=== PATIENT | male | born 1970 ===

== ENCOUNTER 2016-09-18 06:38 | Inpatient (IN) | payer OTHER ==
[2016-09-18 07:10] LABS: Eosinophils % (Auto) 0.1 % (0.0-4.3)
[2016-09-18 07:20] LABS: Anion Gap 24 mmol/L; Blood Urea Nitrogen 9 mg/dL (9-20); Calcium 8.9 mg/dL (8.4-10.2); Carbon Dioxide 18 mmol/L (22-30); Chloride 89.1 mmol/L (98-107); Potassium 4.1 mmol/L (3.6-5.0); Sodium 127 mmol/L (137-145)
[2016-09-18 07:49] LABS: Mean Corpuscular HGB Conc 29 % (32-34); Red Blood Count 5.68 M/mm3 (3.65-5.03); White Blood Count 4.7 K/mm3 (4.5-11.0)
[2016-09-18 07:50] LABS: Hematocrit 32.5 % (35.5-45.6); Hemoglobin 9.5 gm/dl (11.8-15.2); Mean Corpuscular Hemoglobin 17 pg (28-32); Mean Corpuscular Volume 57 fl (84-94); Platelet Count 157 K/mm3 (140-440); Red Cell Distribution Width 20.9 % (13.2-15.2)
[2016-09-18 07:51] LABS: Glucose 568 mg/dL (75-100)
[2016-09-18 07:54] LABS: Basophils % (Auto) 0.6 % (0.0-1.8); Diff Status Complete
[2016-09-18] MEDS ORDERED: ATIVAN IV ONE (10:04)
[2016-09-18] MEDS ORDERED: NACL 0.9% 1000 ML 1,000 ML IV ONE ×2 (10:04→11:39)
[2016-09-18] MEDS ORDERED: ATIVAN ONE (10:05)
[2016-09-18] MEDS ORDERED: NACL 0.9% 1000 ML 1,000 ML ONE (10:05)
--- NOTE | 2016-09-18 10:17 | Admit Criteria Form ---
Admission Criteria Documentation: GENERAL ADMISSION CRITERIA (Place 'X' for any and all applicable criteria): Admission is indicated for ANY ONE of the following: [ ]I. Hemodynamic instability as indicated by ANY ONE of the following(1)(2) (3)(4)(5): [ ]a) Vital sign abnormality not readily corrected by appropriate treatment within 12 to 24 hours indicated by ANY ONE of the following: [ ]i) Hypotension [ ]ii) Symptomatic Tachycardia unresponsive to treatment (eg , analgesia, fluids, sedation as indicated) [ ]iii) Orthostatic vital sign changes unresponsive to treatment (eg, fluids) [ ]b) Vital sign abnormality that is severe indicated by ANY ONE of the following: [ ]i) Inadequate perfusion indicated by ANY ONE of the following: [ ]1) Lactic acidosis (greater than 2 mmol/L) [ ]2) New abnormal capillary refill (greater than 3 seconds) [ ]3) Other metabolic acidosis (arterial pH less than 7.35) not otherwise explained [ ]4) Reduced urine output [ ]5) Altered mental status [ ]6) Myocardial Ischemia [ ]v) Mean arterial pressure[A] less than 60 mm Hg [ ]vi) Mean arterial pressure[A] less than 70 mm Hg after 30 minutes of appropriate treatment (eg, fluid resuscitation) [ ]vii) IV inotropic or vasopressor medication required to maintain adequate blood pressure or perfusion [ ]viii) Sustained heart rate greater than 120 beats per minute in adult or child 6 years or older[B]] [ ]II. Hypertension requiring inpatient treatment as indicated by ANY ONE of the following(6)(7)(8): [ ]a) SBP greater than 220 mm Hg or DBP greater than 120 mm Hg despite treatment [ ]b) SBP greater than 140 mm Hg or DBP greater than 100 mm Hg with evidence of acute end organ damage as indicated by ANY ONE of the following: [ ]i) Encephalopathy [ ]ii) Acute renal failure as indicated by new onset of ANY ONE of the following(9)(10)(11)(12)(13): [ ]1) A 3-fold rise in serum creatinine from baseline [ ]2) Serum creatinine greater than 4 mg/dL ( 354 micromoles/L) with acute rise greater than 0.5 mg/dL (44.2 micromoles/L) [ ]3) Reduction of more than 75% in estimated glomerular filtration rate from baseline [ ]4) Estimated glomerular filtration rate less than 35 mL/min/1.73m2 (0.59 mL/sec/1.73m2) in child up to 18 years of age [ ]5) Cessation of urine output indicated by ALL of the following: [ ]A. Adequate volume status [ ]B. Inadequate urine output as indicated by ANY ONE of the following: [ ]a. Urine output less than 0.3 mL/kg/hr for 24 hours [ ]b. Anuria (urine output less than 0.1 mL/kg/hr) for 12 hours [ ]iii) Aortic dissection [ ]iv) Myocardial ischemia [ ]v) Left ventricular heart failure [ ]vi) Retinal hemorrhage [ ]vii) Other significant finding [ ]c) Hypertension in child requiring inpatient treatment as indicated by ALL of the following(14)(15)(16): [ ]i) Outpatient treatment not effective, not available, or not appropriate [ ]ii) SBP or DBP greater than 95th percentile for age [ ]iii) Evidence of acute end organ damage as indicated by ANY ONE of the following: [ ]1) Altered mental status [ ]2) Acute renal failure as indicated by new onset of ANY ONE of the following(9)(10)(11)(12)(13): [ ]A. A 3-fold rise in serum creatinine from baseline [ ]B. Serum creatinine greater than 4 mg/dL (354 micromoles/L) with acute rise greater than 0.5 mg/dL (44.2 micromoles/L) [ ]C. Reduction of more than 75% in estimated glomerular filtration rate from baseline [ ]D. Estimated glomerular filtration rate less than 35 mL/min/1.73m2 (0.59 mL/sec/1.73m2)in child up to 18 years of age [ ]E. Cessation of urine output indicated by ALL of the following: [ ]a. Adequate volume status [ ]b. Inadequate urine output as indicated by ANY ONE of the following: [ ]1) Urine output less than 0.3 mL/kg/hr for 24 hours [ ]2) Anuria (urine output less than 0.1 mL/kg/hr) for 12 hours [ ]3) Severe headache [ ]4) Visual disturbance [ ]5) Retinal hemorrhage [ ]6) Other significant finding [ ]III. Acute cardiac or peripheral ischemia as indicated by ANY ONE of the following: [ ]a) Acute coronary syndrome(17)(18) [ ]b) Acute peripheral ischemia (eg, pulseless, cool, mottled, or cyanotic extremity)(19) [ ]IV. Cardiac arrhythmias or findings of immediate concern indicated by ANY ONE of the following(20)(21): [ ]a) Heart rhythms that are inherently dangerous or unstable indicated by ANY ONE of the following(22)(23)(24): [ ]i) Resuscitated ventricular fibrillation or cardiac arrest [ ]ii) Ventricular escape rhythm [ ]iii) Sustained ventricular tachycardia (30 seconds or more of ventricular rhythm at greater than 100 beats per minute) [ ]iv) Nonsustained ventricular tachycardia and ANY ONE of the following: [ ]1) Suspected cardiac ischemia as cause or consequence of ventricular tachycardia [ ]2) In setting of acute myocarditis [ ]b) Unstable cardiac conduction defects indicated by ANY ONE of the following(24)(25)(26): [ ]i) Type II second-degree atrioventricular block [ ]ii) Third-degree atrioventricular block [ ]iii) New-onset left bundle branch block with suspected myocardial ischemia [ ]c) Any heart rhythm and ANY ONE of the following(22)(23)(27)(28)( 29): [ ] i) Continuous long-term ECG monitoring needed (eg, initiation of drug requiring monitoring for more than 24 hours) [ ] ii) Patient has automatic implanted cardioverter defibrillator that is repeatedly firing, malfunctioning, or in need of immediate adjustment of settings beyond the scope of ambulatory or observation care. [ ]d) Heart rhythms of concern due to ANY ONE of the following: [ ]i) Hypotension [ ]ii) Respiratory distress [ ]iii) Association with other significant symptoms (eg, bradycardia with syncope or ongoing dizziness, supraventricular tachycardia with chest pain) (27)(28) (30) [ ] V. Severe heart failure as indicated by ANY ONE of the following ( 31)(32): [ ]a) Respiratory distress [ ]b) Hypotension [ ]c) Anasarca (refractory to outpatient therapy) [ ]d) Cardiac arrhythmias of immediate concern [ ]e) Myocardial ischemia [ ]. Respiratory abnormalities, including ANY ONE of the following(33)(34) (35)(36): [ ]a) Respiratory rate greater than 30 breaths per minute unresponsive to treatment [A] [ ]b) New saturation of arterial oxygen less than 90% [ ]c) New partial pressure of carbon dioxide greater than 44 mm Hg ( 5.9 kPa) [ ]d) Supplemental oxygen or respiratory treatments needed that are new or not performable at other levels of care [ ]e) New-onset cyanosis [ ]f) Inability to protect airway [ ]g) Chronic lung disease with severe deterioration (not responsive to emergency and observation care treatment as appropriate) as indicated by ANY ONE of the following(34)(36 ): [ ]i) SaO2 5% below baseline in patient with chronic hypoxemia [ ]ii) New requirement for supplemental oxygen to keep SaO2 at baseline or acceptable level [ ]iii) Required supplemental oxygen performable only in acute inpatient setting [ ]iv) Severe airflow or ventilation abnormalities [ ]v) Previously mobile patient unable to walk between rooms [ ]vi Inability to eat or sleep due to dyspnea [ ]vii) Rapid rate of exacerbation onset [ ]viii) Altered mental status ]VII. Severe airflow or ventilation abnormalities (not responsive to emergency and observation care treatment as appropriate) as indicated by ANY ONE of the following(33)(34)(35)(37): [ ]a) PCO2 greater than 42 mm Hg (5.6 kPa) and pH less than 7.35 (new ) [ ]b) Documented PCO2 increased more than 5 mm Hg (0.7 kPa) from disease baseline [ ]c) Airflow measurements [B] less than 60% of previous best or predicted (eg, peak expiratory flow rate less than 300 L/minute) despite intensive emergent treatment [C] [ ]d) Required respiratory treatments that are performable only in acute inpatient setting [ ]VIII. Impending or actual respiratory arrest ( Also use Respiratory Failure GRG for severe respiratory disease and long-term mechanical ventilation patients) [ ]IX. Neurologic abnormalities, including ANY ONE of the following: [ ]a) New findings that suggest ANY ONE of the following: [ ]i) NURSING SU[employer] WORKER infection(38) [ ]ii) Cerebral bleeding, ischemia, or vasospasm(39)(40) [ ]iii) Increased intracranial pressure, hydrocephalus, or cerebral edema(41)(42)(43) [ ]iv) Spinal cord injury(44) [ ]b) Uncontrolled seizures(45) [ ]c) New-onset coma (eg, Franklin coma scale score less than 9) or unexplained abnormal mental status (eg, Franklin coma scale score less than 14) [D](41)(46)(47) [ ]X. New-onset severe neurologic findings requiring inpatient care; examples include(42)(48)(49): [ ]a) Papilledema [ ]b) Cerebral edema [ ]c) Mass effect on CT scan [ ]XI. Suspected acute intra-abdominal process with peritoneal signs, abdominal mass, or similar findings (50)(51)(52) [X ]XII. Severe physiologic disorder remaining after emergency or observation level care (as appropriate) as indicated by ANY ONE of the following (53): [ ]a) Significant dehydration [ X]b) Diabetic ketoacidosis [ ]c) Hyperglycemic hyperosmolar state (eg, osmolality greater than 320 mOsm/kg (mmol/kg) [ ]d) Hypoglycemia [ ]e) Other (new) acid-base disorder with pH less than 7.35 or greater than 7.5(54) [ ]f) Thyroid storm (55) [ ]g) Myxedema coma (55) [ ]XIII. Abdominal abnormalities with ANY ONE of the following(56)(57): [ ]a) Absent bowel sounds with complete ileus [ ]b) Signs of intestinal obstruction or peritonitis [E] [ ]c) Nausea and vomiting that cannot be controlled with outpatient or observation care [ ]XIV. Acute renal failure as indicated by new onset of ANY ONE of the following(9)(10)(11)(12)(13): [ ]a) A 3-fold rise in serum creatinine from baseline [ ]b) Serum creatinine greater than 4 mg/dL (354 micromoles/L) with acute rise greater than 0.5 mg/dL (44.2 micromoles/L) [ ]c) Reduction of more than 75% in estimated glomerular filtration rate from baseline [ ]d) Estimated glomerular filtration rate less than 35 mL/min/ 1.73m2 (0.59 mL/sec/1.73m2) in child up to 18 years of age [ ]e) Cessation of urine output indicated by ALL of the following: [ ]i) Adequate volume status [ ]ii) Inadequate urine output as indicated by ANY ONE of the following: [ ]1) Urine output less than 0.3 mL/kg/hr for 24 hours [ ]2) Anuria (urine output less than 0.1 mL/kg/hr) for 12 hours [ ]XV. Significant uremic complications as indicated by ANY ONE of the following(58)(59)(60): [ ]a) Outpatient therapy is ineffective or not feasible for ANY ONE of the following: [ ]i) Severe heart failure [ ]ii) Severehypertension [ ]iii) Pleural effusion [ ]iv) Pericarditis or pericardial effusion [ ]b) Cardiac arrhythmias of immediate concern [ ]c) Intractable nausea or vomiting [ ]d) Recurrent seizures [ ]e) Encephalopathy [ ]f) Bleeding abnormalities (eg, platelet dysfunction) with active (eg, gastrointestinal) bleeding [ ]g) Dialysis indicated before long-term access or ambulatory arrangements can be made [ ]h) Significant metabolic or electrolyte abnormalities (eg, severe acidosis or hyperkalemia) [ ]XVI. High fever or other high-risk infection situation as indicated by ANY ONE of the following(61)(62)(63)(64): [ ]a) Outpatient and observation care antimicrobial treatment unavailable, not effective, or not appropriate [ ]b) Documented bacteremia [ ]c) Temperature greater than 40.5 degrees C (104.9 degrees F) ( oral) [ ]d) Temperature greater than 39.5 degrees C (103.1 degrees F) ( oral) or less than 36 degrees C (96.8 degrees F) (rectal) that does not respond to e treatment and observation care [ ] XVII. Temperature less than 95 degrees F (35 degrees C)(rectal)(65) [ ] XVIII. Severe nutritional abnormalities as indicated by ALL of the following (66)(67): [ ]a) Inability to tolerate or establish sufficient oral or other enteral nutrition in outpatient setting [ ]b) Parenteral nutrition regimen need that must be implemented on inpatient basis [ ] XIX. Severe electrolyte abnormalities indicated by ALL of the following(68) (69)(70): [ ]a) Electrolytes and associated findings are not as expected for patient baseline or acceptable treatment effects. [ ]b) Severe abnormalities indicated by ANY ONE of the following: [ ]i) Sodium less than 130 mEq/L (mmol/L) (new) [ ]ii)Sodium less than 135 mEq/L (mmol/L) with ANY ONE of the following: [ ]1) Uncorrectable (to near normal or chronic baseline) after trial of outpatient and emergency treatment [ ]2) Altered mental status [ ]3) Seizures [ ]4) Severe medical etiology requiring inpatient management (eg, heart failure, hypovolemia) [ ]iii) Sodium greater than 155 mEq/L (mmol/L) [ ]iv) Sodium greater than 150 mEq/L (mmol/L) with ANY ONE of the following: [ ]1) Uncorrectable (to near normal or chronic baseline) with outpatient and emergency treatment [ ]2) Altered mental status [ ]3) Seizures [ ]4) Severe medical etiology (eg, hypovolemia, diabetes insipidus) [ ]v) Potassium less than 2.5 mEq/L (mmol/L) despite outpatient and emergency treatment [ ]vi) Potassium less than 3 mEq/L (mmol/L) with ANY ONE of the following: [ ]1) Weakness [ ]2) Cardiac abnormality (eg, arrhythmia, conduction disturbance) [ ]3) Cardiac ischemia [ ]4) Ileus [ ]5) Ongoing medical cause requiring inpatient management (eg, acute renal wasting or SIADH) [ ]6) Other severe symptoms [ ]vii) Potassium greater than 6.5 mEq/L (mmol/L) [ ]viii) Potassium greater than 5 mEq/L (mmol/L) with ANY ONE of the following: [ ]1) Uncorrectable (to near normal or chronic baseline) with outpatient and emergency treatment [ ]2) Severe ECG findings [F] [ ]3) Acute worsening of renal failure (creatinine greater than 2.5 mg/dL (221 micromoles/L) or significant elevation for age and size) [ ]4) Severe weakness [ ]5) Severe medical etiology (eg, hemolysis, infection, drug overdose) [ ]ix) Calcium less than 7 mg/dL (1.75 mmol/L) despite outpatient and emergency treatment (72) [ ]x) Calcium less than 8 mg/dL (2 mmol/L) with significant symptoms or findings; examples include(72): [ ]1) Altered mental status [ ]2) Muscle spasms [ ]3) Seizures [ ]4) Breathing difficulty [ ]5) Cardiac abnormality (eg, arrhythmia or conduction disturbance) [ ]xi) Calcium greater than 14 mg/dL (3.5 mmol/L)(72) [ ]xii) Calcium greater than 12 mg/dL (3 mmol/L) with ANY ONE of the following(72): [ ]1) Uncorrectable (to near normal or chronic baseline) with outpatient and emergency treatment [ ]2) Significant dehydration or hypovolemia as indicated by ALL of the following(70)(73)(74): [ ]A. Not resolved with initial treatments [ ]B. Clinically significant dehydration as indicated by ANY ONE of the following: [ ]a. Vomiting refractory to outpatient treatment (ie, precluding oral rehydration) [ ]b. Inability to drink [ ]c. Hypernatremia or other electrolyte abnormality unable to be corrected with outpatient and emergency treatment [ ]d. Failure to remain hydrated with outpatient therapy [ ]e. Reduced urine output [ ]f. Hypotension [ ]g. Serious cause for dehydration requiring acute hospitalization (eg, bowel obstruction, increased intracranial pressure, infectious cause) [ ]h. Child with ANY ONE of the following(75): [ ]1) Severe abdominal tenderness [ ]2) Adequate care not available at home [ ]3) Severe dehydration ( greater than 9% loss of body weight) [ ]4) Significant symptoms or findings; examples include: [ ]A. Altered mental status [ ]B. Cardiac abnormality (eg, arrhythmia, conduction disturbance) [ ]C. Malignant etiology requiring inpatient treatment [ ]xiii) Phosphorus less than 1 mg/dL (0.32 mmol/L) [ ]xiv) Phosphorus less than 1.5 mg/dL (0.48 mmol/L) with ANY ONE of the following: [ ]1) Patient unresponsive to outpatient and emergency treatment [ ]2) Significant symptoms or findings; examples include: [ ]A. Weakness [ ]B. Altered mental status [ ]C. Breathing difficulty [ ]D. Seizures [ ]E. Rhabdomyolysis [ ]xv) Phosphorus greater than 10 mg/dL (3.2 mmol/L) [ ]xvi) Phosphorus greater than 4.5 mg/dL (1.45 mmol/L) (new) with ANY ONE of the following: [ ]1) Severe medical etiology (eg, crush injury, acute renal failure) [ ]2) Associated hypocalcemia with significant findings; examples include: [ ]A. Neurologic symptoms [ ]B. Altered mental status [ ]C. Muscle spasms [ ]D. Seizures [ ]E. Breathing difficulty [ ]F. Cardiac abnormality (eg, arrhythmia, conduction disturbance) [ ]xvii) Magnesium less than 1 mg/dL (0.41 mmol/L) [ ]xviii) Magnesium less than 1.5 mg/dL (0.62 mmol/L) with ANY ONE of the following: [ ]1) Patient unresponsive to outpatient and emergency treatment [ ]2) Associated hypocalcemia with significant findings; examples include: [ ]A. Altered mental status [ ]B. Muscle spasms [ ]C. Seizures [ ]D. Breathing difficulty [ ]E. Cardiac abnormality (eg, arrhythmia , conduction disturbance) [ ]3) Associated hypokalemia (potassium less than 3 mEq/L (mmol/L)) with risk of arrhythmia [ ]xix) Magnesium greater than 4 mEq/L (2 mmol/L) [ ]xx) Magnesium greater than 2.5 mEq/L (1.25 mmol/L) with significant symptoms or findings; examples include: [ ]1) Weakness [ ]2) Altered mental status [ ]3) Cardiac abnormality (eg, arrhythmia, conduction disturbance) [ ]4) Breathing difficulty [ ]5) Severe medical etiology (eg, renal failure, hypovolemia) [ ]xxi) Uric acid greater than 20 mg/dL (1190 micromoles/L)(76) [ ]xxii) Uric acid greater than 8 mg/dL (476 micromoles/L) with significant symptoms or findings of tumor lysis syndrome; examples include(76): [ ]1) Creatinine greater than 1.5 times upper limit of normal [ ]2) Cardiac abnormality (eg, arrhythmia, conduction disturbance) [ ]3) Seizure [ ]XX. Acute blood loss causing significant abnormality as indicated by ANY ONE of the following(77)(78): [ ]a) Hemoglobin less than 10 g/dL (100 g/L) (not baseline) [ ]b) Hematocrit less than 30% (0.30) (not baseline) [ ]c) Repeat hematocrit decreased more than 2% (0.02) [ ]d) Uncontrolled bleeding [ ]XXI. Severe anemia indicated by ANY ONE of the following(78)(79): [ ]a) Altered mental status [ ]b) Chest pain [ ]c) Exertional dyspnea [ ]d) Syncope [ ]e) Other findings suggesting inadequate perfusion [ ]f) Treatment with transfusion or volume replacement is ineffective at resolving ANY ONE of the following [G]: [ ]i) Tachycardia for age [ ]ii) Orthostatic vital sign changes as indicated by ANY ONE of the following(80): [ ]1) Fall in SBP of 20 mm Hg or more 1 to 3 minutes after patient sits or stands from recumbent position [ ]2) Fall in DBP of 10 mm Hg or more 1 to 3 minutes after patient sits or stands from recumbent position [ ]XXII. High-risk low platelet count as indicated by ANY ONE of the following( 81)(82): [ ]a) Severe or life-threatening bleeding (eg, intracranial, major gastrointestinal, or extensive mucosal bleeding), with any reduced platelet count [ ]b) Platelet count less than 20,000/mm3 (20 x109/L) with any active bleeding [ ]c) Platelet count less than 10,000/mm3 (10 x109/L) with minor purpura or petechiae [ ]d) Platelet count less than 5000/mm3 (5 x109/L) [ ]e) Low platelet count with hemolytic anemia [ ]XXIII. Disseminated intravascular coagulation(77)(83) [ ]XXIV. Severe adverse drug or systemic toxin reaction requiring inpatient treatment; examples include(84)(85): [ ]a) Serotonin syndrome(86) [ ]b) Neuroleptic malignant syndrome(86) [ ]c) Cholinergic syndrome with severe symptoms (eg, bronchorrhea, weakness, mental status changes, seizures) [ ]d) Sympathetic syndrome with severe symptoms (eg, seizures, mental status changes, cardiac dysrhythmias) [ ]e) Anticholinergic syndrome [ ]XXV. Severe pain requiring acute inpatient management as indicated by ALL of the following (87)(88)(89): [ ]a) Continuous or frequent (eg, every 2 to 4 hours) parenteral analgesics required [H] [ ]b) Rapid improvement expected from treatment or acute intervention (eg, surgery, anesthesia procedure) [ ]XXVI.Severe behavioral health issues judged unmanageable at a lower level of care (eg, residential) in a patient who is ANY ONE of the following(91) [ ]a) Acutely suicidal [ ]b) A danger to self (eg, self-mutilating or suicidal behavior) [ ]c) A danger to others (eg, assaultive or homicidal behavior) [ ]d) Incapacitated because of grave disability (eg, inability to provide for self at lower level of care) (92) [ ]XXVII. Inpatient monitoring needed; examples include(1)(3)(87)(93)(94)(95)(96 ): [ ]a) Vital signs, neurologic signs, or vascular checks more frequently than every 4 hours [ ]b) Cardiac or respiratory monitoring beyond the scope (eg, over 24 hours) of observation care [ ]c) Pulmonary artery catheter monitoring [ ]d) Suspected compartment syndrome(97) (98) [ ]e) Cerebral bleeding, hydrocephalus, or vasospasm monitoring [ ]f) Increased intracranial pressure or cerebral edema monitoring [ ]g) monitoring [ ]XXVIII. Treatment requiring inpatient care; examples include: [ ]a) IV fluid to replace significant ongoing losses (greater than 3 L/m2 per day)(53) [ ]b) High concentration oxygen (greater than 40%)(33)(99)(100) [ ]c) Frequent respiratory therapy (more frequently than every 4 hours) to maintain airflow rates greater than 60% of baseline(33)(99)(100) [ ]d) Epidural analgesia(87) [ ]e) IV anticoagulation, vasoactive, or antiarrhythmic medication(19 )(23) [ ]f) Acute thrombolytics (generally require 24 hours of observation )(101)(102) [ ]XXIX. Emergency procedures needed; examples include: [ ]a) Emergency inpatient surgery [ ]b) Temporary pacemaker placement(103) [ ]c) Chest tube placement with active evacuation (eg, suction, drainage)(104) [ ]d) Emergent cardioversion(105) [ ]e) Emergent cardiac or vascular procedures (eg, cardiac catheterization, angioplasty) (17)(18) [ ]f) Emergent dialysis access placement and institution(10)(106) [ ]g) Emergent pericardiocentesis(107) [ ]h) Emergent plasmapheresis or leukapheresis(83) [ ]i) Emergent tracheostomy The original [employer] content created by [employer] has been revised. The portions of the content which have been revised are identified through the use of italic text or in bold, and [employer] has neither reviewed nor approved the modified material. All other unmodified content is copyright [employer]. Please see references footnoted in the original [employer] edition 2016 Admission Criteria Met: Yes
--- NOTE | 2016-09-18 10:19 | XRay Report ---
CHEST ONE VIEW INDICATION: Chest pain. COMPARISON: None similar at this institution. FINDINGS: Portable, single, frontal chest radiograph demonstrates normal cardiomediastinal silhouette. Clear lungs. Thoracic spondylosis. Extrinsic EKG leads. CONCLUSION: No acute disease in the chest. Thank you for the opportunity to participate in this patient's care.
[2016-09-18 10:30] LABS: Urine Drugs of Abuse Note Disclamer
[2016-09-18 10:44] LABS: Bilirubin,Urine NEG (Negative); Blood,Urine NEG (Negative); Ketones,Urine TR mg/dL (Negative); Leukocyte Esterase,Urine NEG (Negative); Nitrite,Urine NEG (Negative); Protein,Urine <15 mg/dL mg/dL (Negative); Urobilinogen,Urine < 2.0 mg/dL (<2.0)
[2016-09-18 10:52] LABS: WBC,Urine < 1.0 /HPF (0.0-6.0)
[2016-09-18 10:53] LABS: INR 1.08 (0.87-1.13)
[2016-09-18 10:57] LABS: Creatine Kinase MB 3.5 ng/mL (0.0-4.0)
[2016-09-18 11:10] LABS: Albumin/Globulin Ratio 1.1 %; Bilirubin,Direct 0.2 mg/dL (0-0.2); Bilirubin,Indirect 0.7 mg/dL; Bilirubin,Total 0.9 mg/dL (0.1-1.2); Magnesium 2.1 mg/dL (1.7-2.3); Total Protein 7.8 g/dL (6.3-8.2)
[2016-09-18] MEDS ORDERED: MILK OF MAGNESIA PO PRN (11:10)
[2016-09-18] MEDS ORDERED: DULCOLAX PR PRN (11:10)
[2016-09-18] MEDS ORDERED: ALUM-MAG HYDROX-SIMETH 200-200-20MG/5ML PO PRN (11:10)
[2016-09-18] MEDS ORDERED: ZOFRAN IV PRN (11:28)
--- NOTE | 2016-09-18 11:35 | History and Physical Report ---
History of Present Illness Date of examination: 09/18/16 Date of admission: 09/18/2018 Chief complaint: Abdominal pain, Nausea and vomiting History of present illness: Patient is a 45 years old with history of DM Williams 1, and Hep-C. Patient presented to the ER with two days of increased urinary frequency, abdominal pain, dizziness, nausea and vomiting . They were associated with intermittent headaches. He was concerned of daily glucose logs which have been progressively higher over the last few days. He was more alarmed upon finding his AM glucose prior to arrival being >500 mg/dl. In the ED he was initially given 1L NS bolus then 8U regular insulin and BG came down to 366 then NS continues infusion of 100cc/hr. Patient was very nervous, he was given ativan 1mg to calm him down. Patient is noncomplinace with insulin or diet. He is being admitted for management. t Past History Past Medical History: diabetes, liver disease Past Surgical History: No surgical history Social history: single (lives with Girl friend ), lives with family, full code Family history: diabetes, hypertension Medications and Allergies Allergies Allergy/AdvReac Type Severity Reaction Status Date / Time No Known Allergies Allergy Verified 02/28/16 19:36 Home Medications Medication Instructions Recorded Confirmed Last Taken Type Insulin NPH/Regular [NovoLIN 70/30] 25 unit SQ BID #1 vial 09/19/16 Unknown Rx Active Meds: Active Medications Al Hydrox/Mg Hydrox/Simethicone (Alum-Mag Hydrox-Simeth 287-183-88ug/5ml) 30 ml PO Q4H PRN PRN Reason: Indigestion Bisacodyl (Dulcolax) 10 mg SD QDAY PRN PRN Reason: constipation unrelieved by MOM Enoxaparin Sodium (Lovenox) 40 mg SUB-Q QDAY ANAT Sodium Chloride (Nacl 0.9% 1000 Ml) 1,000 mls @ 100 mls/hr IV DIRECT ANAT Magnesium Hydroxide (Milk Of Magnesia) 30 ml PO Q4H PRN PRN Reason: Constipation Ondansetron HCl (Zofran) 4 mg IV Q4H PRN PRN Reason: Vomiting Pantoprazole Sodium (Protonix) 40 mg IV DAILY ANAT Review of Systems Constitutional: chills, fatigue, weakness, malaise, lethargy, no weight loss, no weight gain, no fever Ears, nose, mouth and throat: no ear pain, no ear discharge, no tinnitis, no decreased hearing Cardiovascular: no chest pain, no orthopnea, no palpitations Respiratory: no cough, no cough with sputum, no excessive sputum, no hemoptysis Gastrointestinal: nausea, vomiting Rectal: no pain, no incontinence Musculoskeletal: no neck stiffness, no neck pain, no muscle weakness, no muscle cramps Integumentary: no rash, no pruritis, no redness Neurological: weakness, headaches, no paralysis, no seizures, no syncope Psychiatric: anxiety Endocrine: polyphagia, excessive thirst, polydipsia, high blood sugars, no cold intolerance, no heat intolerance Hematologic/Lymphatic: no easy bruising, no easy bleeding Allergic/Immunologic: no urticaria, no allergic rhinitis Exam - Constitutional Vitals: Temp Pulse Resp BP Pulse Ox 98.2 F 96 H 20 156/90 100 09/18/16 06:47 09/18/16 10:00 09/18/16 10:00 09/18/16 10:00 09/18/16 10:00 General appearance: Present: no acute distress, well-nourished - EENT Eyes: Present: PERRL, EOM intact ENT: hearing intact, clear oral mucosa, dentition normal - Neck Neck: Present: supple, normal ROM - Respiratory Respiratory effort: normal Respiratory: bilateral: CTA, negative: diminished, rales, rhonchi, wheezing - Cardiovascular Rhythm: regular Heart Sounds: Present: S1 & S2 (S1 and S2 reg, no murmurs). Absent: rub, click - Extremities Extremities: no ischemia, pulses symmetrical, No edema, normal color - Abdominal General gastrointestinal: Present: soft, non-tender, non-distended, normal bowel sounds Male genitourinary: Present: deferred - Rectal Rectal Exam: deferred - Integumentary Integumentary: Present: clear, warm, dry - Musculoskeletal Musculoskeletal: gait normal, strength equal bilaterally - Psychiatric Psychiatric: appropriate mood/affect, intact judgment & insight - Neurologic Neurologic: CNII-XII intact, moves all extremities, other (AAO x 3) Results - Labs CBC & Chem 7: 09/19/16 05:01 09/19/16 05:01 Labs: Abnormal lab results 09/18/16 09/18/16 09/18/16 Range/Units 06:53 06:53 08:09 RBC 5.68 H (3.65-5.03) M/mm3 Hgb 9.5 L (11.8-15.2) gm/dl Hct 32.5 L (35.5-45.6) % MCV 57 L (84-94) fl MCH 17 L (28-32) pg MCHC 29 L (32-34) % RDW 20.9 H (13.2-15.2) % [place] % (Auto) 11.5 H (0.0-7.3) % Lymph # 1.1 L (1.2-5.4) K/mm3 Sodium 127 L (137-145) mmol/L Chloride 89.1 L (98-107) mmol/L Carbon Dioxide 18 L (22-30) mmol/L Glucose 568 H* (75-100) mg/dL POC Glucose 366 H (70-105) AST (5-40) units/L Total Creatine Kinase (55-170) units/L Urine pH (5.0-7.0) 09/18/16 09/18/16 09/18/16 Range/Units 10:23 10:37 10:37 RBC (3.65-5.03) M/mm3 Hgb (11.8-15.2) gm/dl Hct (35.5-45.6) % MCV (84-94) fl MCH (28-32) pg MCHC (32-34) % RDW (13.2-15.2) % [place] % (Auto) (0.0-7.3) % Lymph # (1.2-5.4) K/mm3 Sodium (137-145) mmol/L Chloride (98-107) mmol/L Carbon Dioxide (22-30) mmol/L Glucose (75-100) mg/dL POC Glucose (70-105) AST 45 H (5-40) units/L Total Creatine Kinase 295 H (55-170) units/L Urine pH 8.0 H (5.0-7.0) 09/18/16 Range/Units 11:16 RBC (3.65-5.03) M/mm3 Hgb (11.8-15.2) gm/dl Hct (35.5-45.6) % MCV (84-94) fl MCH (28-32) pg MCHC (32-34) % RDW (13.2-15.2) % [place] % (Auto) (0.0-7.3) % Lymph # (1.2-5.4) K/mm3 Sodium (137-145) mmol/L Chloride (98-107) mmol/L Carbon Dioxide (22-30) mmol/L Glucose (75-100) mg/dL POC Glucose 210 H (70-105) AST (5-40) units/L Total Creatine Kinase (55-170) units/L Urine pH (5.0-7.0) - Imaging and Cardiology Chest x-ray: report reviewed (No acute disease in the chest) Assessment and Plan ASSESSMENT: 1. Diabetic ketoacidosis (DKA) Will admit to MED/SURG Noncomplinace w insulin/diet NPO apart from meds IVF - @ NS@100 cc/hr, keep urine output >50 cc/hr Accucheck Q 4 hr BMP q 8hr EKG in AM Correct electrolytes Morphine 2 mg IV q 2-4 hr PRN pain O2 to keep SpO2 >92% I/O -CBC and BMP in AM consistent Carbohydrate diet Sliding Scale Insulin/Novlog 2.Hyponatremia NS IVF given in the ED Sodium level is corrected we will repeat BMP in the AM close monitoring of electrolytes 3. Hepatitis- C Follow up with primary provider as outpatient VTE/GI Prophylaxis Lovenox/Protonix
[2016-09-18 13:22] LABS: Anion Gap 20 mmol/L; BUN/Creatinine Ratio 13.33; Blood Urea Nitrogen 8 mg/dL (9-20); Calcium 8.4 mg/dL (8.4-10.2); Carbon Dioxide 21 mmol/L (22-30); Chloride 100.6 mmol/L (98-107); Glucose 171 mg/dL (75-100); Potassium 4.2 mmol/L (3.6-5.0); Sodium 137 mmol/L (137-145)
[2016-09-18] MEDS ORDERED: D50W (25GM) IV PRN (13:49)
[2016-09-18] MEDS ORDERED: PROTONIX PO ONE (14:08)
[2016-09-18] MEDS: PROTONIX PO SCH (14:11)
--- NOTE | 2016-09-18 15:05 | Emergency Department Report ---
ED General Adult HPI - General Chief complaint: Chest Pain Stated complaint: CHEST PAINS/SOB/DIABETIC/LIGHTHEADED Time Seen by Provider: 09/18/16 10:00 Source: patient Mode of arrival: Ambulatory Limitations: No Limitations - History of Present Illness Initial comments: Patient arrives with a variety of complaints. He admits that he had been rationing his insulin because he does not have medical insurance. He states he uses regular insulin on a sliding scale. He does not have a primary care doctor. He states his last insulin dose was yesterday. He does complain of polyuria and polydipsia. He has multiple other peripheral complaints to include chest pain 1 day some vague abdominal pain nausea and some vomiting. He also states is somewhat short of breath and has not been coughing. Denies fever or chills. He appears to be somewhat anxious and hyperactive. -: Gradual, days(s) Location: chest, abdomen Radiation: non-radiation Quality: aching Consistency: intermittent Improves with: none Worsens with: none Associated Symptoms: chest pain, headaches, malaise, nausea/vomiting, shortness of breath, weakness. denies: confusion, cough, diaphoresis, fever/chills, loss of appetite, rash, seizure, syncope Treatments Prior to Arrival: none - Related Data Home Medications Medication Instructions Recorded Confirmed Last Taken Insulin NPH/Regular [Novolin 70/30] 25 unit SQ BID 09/18/16 09/18/16 Unknown Allergies Allergy/AdvReac Type Severity Reaction Status Date / Time No Known Allergies Allergy Verified 02/28/16 19:36 ED Review of Systems ROS: Stated complaint: CHEST PAINS/SOB/DIABETIC/LIGHTHEADED Other details as noted in HPI Constitutional: denies: chills, fever Eyes: denies: eye pain, eye discharge, vision change ENT: denies: ear pain, throat pain Respiratory: shortness of breath. denies: cough, wheezing Cardiovascular: chest pain, palpitations (states he felt like his heart was skipping a beat and racing this morning) Endocrine: increased hunger, increased thirst, increased urine Gastrointestinal: abdominal pain (vague epigastric discomfort), nausea. denies : vomiting, diarrhea Genitourinary: denies: urgency, dysuria Musculoskeletal: denies: back pain, joint swelling, arthralgia Skin: denies: rash, lesions Neurological: denies: headache, weakness, paresthesias Psychiatric: denies: anxiety, depression Hematological/Lymphatic: denies: easy bleeding, easy bruising ED Past Medical Hx - Past Medical History Previous Medical History?: Yes Hx Hypertension: Yes Hx Diabetes: Yes Additional medical history: HEP B - Surgical History Past Surgical History?: No - Social History Smoking Status: Current Every Day Smoker Substance Use Type: None - Medications Home Medications: Home Medications Medication Instructions Recorded Confirmed Last Taken Type Insulin NPH/Regular [Novolin 70/30] 25 unit SQ BID 09/18/16 09/18/16 Unknown History ED Physical Exam - General Limitations: No Limitations General appearance: alert, in no apparent distress - Head Head exam: Present: atraumatic, normocephalic - Eye Eye exam: Present: normal appearance. Absent: scleral icterus - ENT ENT exam: Present: normal exam, mucous membranes dry - Neck Neck exam: Present: normal inspection - Respiratory Respiratory exam: Present: normal lung sounds bilaterally. Absent: respiratory distress - Cardiovascular Cardiovascular Exam: Present: regular rate, normal rhythm. Absent: systolic murmur, diastolic murmur, rubs, gallop - GI/Abdominal GI/Abdominal exam: Present: soft, normal bowel sounds. Absent: distended, tenderness, guarding, rebound, rigid - Rectal Rectal exam: Present: deferred - Extremities Exam Extremities exam: Present: normal inspection - Back Exam Back exam: Present: normal inspection - Neurological Exam Neurological exam: Present: alert, oriented X3, CN II-XII intact. Absent: motor sensory deficit - Psychiatric Psychiatric exam: Present: normal affect, normal mood - Skin Skin exam: Present: warm, dry, intact, normal color. Absent: rash ED Course Vital Signs 09/18/16 09/18/16 09/18/16 06:47 08:22 08:25 Temperature 98.2 F Pulse Rate 81 84 Respiratory 22 16 15 Rate Blood Pressure 152/93 120/73 O2 Sat by Pulse 100 98 100 Oximetry 09/18/16 09/18/16 09/18/16 08:31 09:00 09:31 Temperature Pulse Rate 86 83 87 Respiratory 18 29 H 24 Rate Blood Pressure 120/73 135/81 135/81 O2 Sat by Pulse 100 100 100 Oximetry 09/18/16 09/18/16 09/18/16 10:00 10:31 11:00 Temperature Pulse Rate 96 H 79 78 Respiratory 20 17 21 Rate Blood Pressure 156/90 146/80 136/83 O2 Sat by Pulse 100 100 95 Oximetry 09/18/16 09/18/16 09/18/16 11:31 12:00 13:00 Temperature Pulse Rate 93 H 81 71 Respiratory 24 15 20 Rate Blood Pressure 136/83 139/76 131/72 O2 Sat by Pulse 99 97 98 Oximetry - Reevaluation(s) Reevaluation #1: Patient was given Ativan, fluid bolus and then infusion. He was given insulin. I personally think he may not necessarily need a trip. I've discussed this with the hospitalist staff and it will be per their discretion. The patient was admitted by the hospitalist service for further care and evaluation. 09/18/16 15:06 ED Medical Decision Making - Lab Data Result diagrams: 09/18/16 06:53 09/18/16 12:51 Laboratory Results - last 24 hr 09/18/16 09/18/16 09/18/16 06:53 06:53 08:09 WBC 4.7 RBC 5.68 H Hgb 9.5 L Hct 32.5 L MCV 57 L MCH 17 L MCHC 29 L RDW 20.9 H Plt Count 157 Lymph % (Auto) 23.4 [place] % (Auto) 11.5 H Eos % (Auto) 0.1 Baso % (Auto) 0.6 Lymph # 1.1 L [place] # 0.5 Eos # 0.0 Baso # 0.0 Add Manual Diff Complete Seg Neutrophils % 64.2 Seg Neutrophils # 2.7 PT INR APTT Sodium 127 L Potassium 4.1 Chloride 89.1 L Carbon Dioxide 18 L Anion Gap 24 BUN 9 Creatinine 1.0 Estimated GFR > 60 BUN/Creatinine Ratio 9.00 Glucose 568 H* POC Glucose 366 H Hemoglobin A1c Calcium 8.9 Magnesium Total Bilirubin Direct Bilirubin Indirect Bilirubin AST ALT Alkaline Phosphatase Total Creatine Kinase CK-MB (CK-2) CK-MB (CK-2) Rel Index Troponin T < 0.010 Total Protein Albumin Albumin/Globulin Ratio Urine Color Urine Turbidity Urine pH Ur Specific [place] Urine Protein Urine Glucose (UA) Urine Ketones Urine Blood Urine Nitrite Urine Bilirubin Urine Urobilinogen Ur Leukocyte Esterase Urine WBC (Auto) Urine RBC (Auto) Urine Opiates Screen Urine Methadone Screen Ur Barbiturates Screen Ur Phencyclidine Scrn Ur Amphetamines Screen U Benzodiazepines Scrn Urine Cocaine Screen U Marijuana (THC) Screen Drugs of Abuse Note 09/18/16 09/18/16 09/18/16 10:02 10:23 10:23 WBC RBC Hgb Hct MCV MCH MCHC RDW Plt Count Lymph % (Auto) [place] % (Auto) Eos % (Auto) Baso % (Auto) Lymph # [place] # Eos # Baso # Add Manual Diff Seg Neutrophils % Seg Neutrophils # PT INR APTT Sodium Potassium Chloride Carbon Dioxide Anion Gap BUN Creatinine Estimated GFR BUN/Creatinine Ratio Glucose POC Glucose Hemoglobin A1c Calcium Magnesium Total Bilirubin Direct Bilirubin Indirect Bilirubin AST ALT Alkaline Phosphatase Total Creatine Kinase CK-MB (CK-2) CK-MB (CK-2) Rel Index Troponin T < 0.010 Total Protein Albumin Albumin/Globulin Ratio Urine Color Straw Urine Turbidity Clear Urine pH 8.0 H Ur Specific [place] 1.017 Urine Protein <15 mg/dl Urine Glucose (UA) >=500 Urine Ketones Tr Urine Blood Neg Urine Nitrite Neg Urine Bilirubin Neg Urine Urobilinogen < 2.0 Ur Leukocyte Esterase Neg Urine WBC (Auto) < 1.0 Urine RBC (Auto) 2.0 Urine Opiates Screen Presumptive negative Urine Methadone Screen Presumptive negative Ur Barbiturates Screen Presumptive negative Ur Phencyclidine Scrn Presumptive negative Ur Amphetamines Screen Presumptive positive U Benzodiazepines Scrn Presumptive negative Urine Cocaine Screen Presumptive negative U Marijuana (THC) Screen Presumptive negative Drugs of Abuse Note Disclamer 09/18/16 09/18/16 09/18/16 10:37 10:37 10:37 WBC RBC Hgb Hct MCV MCH MCHC RDW Plt Count Lymph % (Auto) [place] % (Auto) Eos % (Auto) Baso % (Auto) Lymph # [place] # Eos # Baso # Add Manual Diff Seg Neutrophils % Seg Neutrophils # PT 13.9 INR 1.08 APTT 26.0 Sodium Potassium Chloride Carbon Dioxide Anion Gap BUN Creatinine Estimated GFR BUN/Creatinine Ratio Glucose POC Glucose Hemoglobin A1c Calcium Magnesium 2.10 Total Bilirubin 0.90 Direct Bilirubin 0.2 Indirect Bilirubin 0.7 AST 45 H ALT 28 Alkaline Phosphatase 101 Total Creatine Kinase 295 H CK-MB (CK-2) 3.5 CK-MB (CK-2) Rel Index 1.1 Troponin T Total Protein 7.8 Albumin 4.0 Albumin/Globulin Ratio 1.1 Urine Color Urine Turbidity Urine pH Ur Specific [place] Urine Protein Urine Glucose (UA) Urine Ketones Urine Blood Urine Nitrite Urine Bilirubin Urine Urobilinogen Ur Leukocyte Esterase Urine WBC (Auto) Urine RBC (Auto) Urine Opiates Screen Urine Methadone Screen Ur Barbiturates Screen Ur Phencyclidine Scrn Ur Amphetamines Screen U Benzodiazepines Scrn Urine Cocaine Screen U Marijuana (THC) Screen Drugs of Abuse Note 09/18/16 09/18/16 09/18/16 11:16 12:51 12:51 WBC RBC Hgb Hct MCV MCH MCHC RDW Plt Count Lymph % (Auto) [place] % (Auto) Eos % (Auto) Baso % (Auto) Lymph # [place] # Eos # Baso # Add Manual Diff Seg Neutrophils % Seg Neutrophils # PT INR APTT Sodium Potassium Chloride Carbon Dioxide Anion Gap BUN Creatinine Estimated GFR BUN/Creatinine Ratio Glucose POC Glucose 210 H Hemoglobin A1c 8.6 H Calcium Magnesium Total Bilirubin Direct Bilirubin Indirect Bilirubin AST ALT Alkaline Phosphatase Total Creatine Kinase CK-MB (CK-2) CK-MB (CK-2) Rel Index Troponin T < 0.010 Total Protein Albumin Albumin/Globulin Ratio Urine Color Urine Turbidity Urine pH Ur Specific [place] Urine Protein Urine Glucose (UA) Urine Ketones Urine Blood Urine Nitrite Urine Bilirubin Urine Urobilinogen Ur Leukocyte Esterase Urine WBC (Auto) Urine RBC (Auto) Urine Opiates Screen Urine Methadone Screen Ur Barbiturates Screen Ur Phencyclidine Scrn Ur Amphetamines Screen U Benzodiazepines Scrn Urine Cocaine Screen U Marijuana (THC) Screen Drugs of Abuse Note 09/18/16 12:51 WBC RBC Hgb Hct MCV MCH MCHC RDW Plt Count Lymph % (Auto) [place] % (Auto) Eos % (Auto) Baso % (Auto) Lymph # [place] # Eos # Baso # Add Manual Diff Seg Neutrophils % Seg Neutrophils # PT INR APTT Sodium 137 D Potassium 4.2 Chloride 100.6 Carbon Dioxide 21 L Anion Gap 20 BUN 8 L Creatinine 0.6 L Estimated GFR > 60 BUN/Creatinine Ratio 13.33 Glucose 171 H POC Glucose Hemoglobin A1c Calcium 8.4 Magnesium Total Bilirubin Direct Bilirubin Indirect Bilirubin AST ALT Alkaline Phosphatase Total Creatine Kinase CK-MB (CK-2) CK-MB (CK-2) Rel Index Troponin T Total Protein Albumin Albumin/Globulin Ratio Urine Color Urine Turbidity Urine pH Ur Specific [place] Urine Protein Urine Glucose (UA) Urine Ketones Urine Blood Urine Nitrite Urine Bilirubin Urine Urobilinogen Ur Leukocyte Esterase Urine WBC (Auto) Urine RBC (Auto) Urine Opiates Screen Urine Methadone Screen Ur Barbiturates Screen Ur Phencyclidine Scrn Ur Amphetamines Screen U Benzodiazepines Scrn Urine Cocaine Screen U Marijuana (THC) Screen Drugs of Abuse Note - EKG Data -: EKG Interpreted by Me EKG shows normal: sinus rhythm, axis, intervals, QRS complexes, ST-T waves Rate: normal - EKG Data Interpretation: no acute changes - Radiology Data Radiology results: report reviewed interpreted by me: No acute process Critical care attestation.: If time is entered above; I have spent that time in minutes in the direct care of this critically ill patient, excluding procedure time. ED Disposition Clinical Impression: Hyponatremia, Palpitations, Amphetamine abuse DKA, type 1 Qualifiers: Diabetes mellitus complication detail: without coma Qualified Code(s): E10.10 - Type 1 diabetes mellitus with ketoacidosis without coma Chest pain Qualifiers: Chest pain type: unspecified Qualified Code(s): R07.9 - Chest pain, unspecified Disposition: -09 OP ADMIT IP TO THIS HOSP Is pt being admited?: Yes Does the pt Need Aspirin: Yes Condition: Stable Instructions: Diabetes Mellitus Type 2 in Adults (ED), Chest Pain (ED) Referrals: PRIMARY CARE, [Primary Care Provider] - 7 Days Time of Disposition: 15:09
[2016-09-18] MEDS: BABY ASPIRIN PO SCH (16:00)
[2016-09-18] MEDS: NORCO 5/325 PO PRN (18:34)
[2016-09-18] MEDS: NOVOLOG SUB-Q SCH (18:48)
[2016-09-18 21:31] LABS: Anion Gap 19 mmol/L; Blood Urea Nitrogen 9 mg/dL (9-20); Calcium 8.3 mg/dL (8.4-10.2); Carbon Dioxide 21 mmol/L (22-30); Chloride 99.2 mmol/L (98-107); Glucose 318 mg/dL (75-100); Potassium 4.4 mmol/L (3.6-5.0); Sodium 135 mmol/L (137-145)
[2016-09-18] MEDS ORDERED: NOVOLOG SUB-Q SCH (22:00)
[2016-09-18] MEDS: NACL 0.9% 1000 ML 1,000 ML IV SCH (22:11)
[2016-09-19] MEDS: NORCO 5/325 PO PRN ×2 (00:32→09:48)
[2016-09-19 05:38] LABS: Basophils % (Auto) 0.2 % (0.0-1.8); Eosinophils % (Auto) 0.5 % (0.0-4.3); Mean Corpuscular HGB Conc 29 % (32-34); Red Blood Count 5.48 M/mm3 (3.65-5.03); White Blood Count 4.9 K/mm3 (4.5-11.0)
[2016-09-19 05:40] LABS: Hemoglobin 9.2 gm/dl (11.8-15.2)
[2016-09-19 05:41] LABS: Hematocrit 31.6 % (35.5-45.6); Mean Corpuscular Hemoglobin 17 pg (28-32); Mean Corpuscular Volume 58 fl (84-94); Red Cell Distribution Width 20.6 % (13.2-15.2)
[2016-09-19 05:49] LABS: Anion Gap 18 mmol/L; BUN/Creatinine Ratio 12.85; Blood Urea Nitrogen 9 mg/dL (9-20); Calcium 8.4 mg/dL (8.4-10.2); Carbon Dioxide 22 mmol/L (22-30); Chloride 103.4 mmol/L (98-107); Glucose 220 mg/dL (75-100); Potassium 4.4 mmol/L (3.6-5.0); Sodium 139 mmol/L (137-145)
[2016-09-19 06:22] LABS: Platelet Count 108 K/mm3 (140-440)
[2016-09-19 08:13] VITALS: BP 128/72
[2016-09-19] MEDS: NACL 0.9% 1000 ML 1,000 ML IV SCH (08:26)
[2016-09-19] MEDS: NOVOLOG SUB-Q SCH (08:29)
[2016-09-19] MEDS: BABY ASPIRIN PO SCH (09:49)
[2016-09-19] MEDS: PROTONIX PO SCH (09:49)
[2016-09-19] MEDS ORDERED: LOVENOX SUB-Q SCH (10:00)
[2016-09-19] MEDS ORDERED: PROTONIX IV SCH (10:00)
--- NOTE | 2016-09-19 10:34 | Discharge Summary ---
Providers - Providers Date of Admission: 09/18/16 11:10 Date of discharge: 09/19/16 Attending physician: RASHMI MORENO 09/19/16 10:32 Consult to Case Management [CONS] Routine Services Needed at Discharge: [employer] Primary care physician: L[facility]YOR Hospitalization Condition: Good Disposition: DC-01 TO HOME OR SELFCARE - Discharge Diagnoses (1) DKA (diabetic ketoacidoses) Status: Acute Qualifiers: Diabetes mellitus type: D Diabetes mellitus complication detail: D Exam - Constitutional Vitals: Temp Pulse Resp BP Pulse Ox 98.4 F 68 16 128/72 100 09/19/16 08:00 09/19/16 08:00 09/19/16 08:00 09/19/16 08:00 09/19/16 08:00 Plan Activity: no restrictions Diet: low fat, low cholesterol, diabetic Additional Instructions: 1.Follow up with PCP or [facility] in 1 week. Follow up with: PRIMARY CARE,MD [Primary Care Provider] - 7 Days Prescriptions: Insulin NPH/Regular [NovoLIN 70/30] 25 unit SQ BID #1 vial
== END 2016-09-19 12:00 | disposition home or self-care (01) | DRG 638 ==
LOC: ED 06:38 → 3A 11:10
PROVIDERS: ADMIT Internal Medicine; ATTEND Internal Medicine
DX: E13.10 Other specified diabetes mellitus with ketoacidosis without coma (principal); E87.1 Hypo-osmolality and hyponatremia; Z83.3 Family history of diabetes mellitus; Z82.49 Family history of ischemic heart disease and other diseases of the circulatory system; B19.20 Unspecified viral hepatitis C without hepatic coma; I10 Essential (primary) hypertension; F17.200 Nicotine dependence, unspecified, uncomplicated; F15.10 Other stimulant abuse, uncomplicated
CPT/HCPCS: 36415; 71010; 80048; 80074; 80307; 81001; 82550; 82553; 82962; 83036; 83735; 84484; 85025; 85610; 85730; 93005; 93010; 94760; 96361; 96372; 96374; 99406; J1650; J1815; J2060; J7030

== ENCOUNTER 2016-11-01 07:49 | Inpatient (IN) | payer OTHER ==
[2016-11-01] MEDS ORDERED: NACL 0.9% 1000 ML 1,000 ML IV ONE ×4 (08:03→14:39)
[2016-11-01] MEDS ORDERED: ZOFRAN IV ONE (08:04)
[2016-11-01] MEDS ORDERED: TORADOL IV ONE (08:04)
--- NOTE | 2016-11-01 08:07 | Emergency Department Report ---
- General Chief complaint: Hyperglycemia Stated complaint: HYPERGLYCEMIA Time Seen by Provider: 11/01/16 07:59 Source: patient, EMS Mode of arrival: Stretcher Limitations: No Limitations - History of Present Illness Initial comments: 45-year-old male with a history of type 2 diabetes here with elevated blood sugars. Patient states he's been feeling weak and fatigued the last several days. He's been out of his test strips and has not checked his sugar for quite some time. He has not had his insulin for over 3 days. He complains of some blurry vision. He has been nauseous and vomiting. Complains of chills but no fevers. -: Gradual Location: generalized Improves with: none Worsens with: none Associated Symptoms: headaches, nausea/vomiting. denies: chest pain, confusion - Related Data Previous Rx's Medication Instructions Recorded Last Taken Type Insulin NPH/Regular [NovoLIN 70/30] 25 unit SQ BID #1 vial 09/19/16 Unknown Rx Allergies Allergy/AdvReac Type Severity Reaction Status Date / Time No Known Allergies Allergy Verified 02/28/16 19:36 ED Review of Systems ROS: Stated complaint: HYPERGLYCEMIA Other details as noted in HPI Comment: All other systems reviewed and negative Constitutional: chills. denies: fever Eyes: denies: eye pain, eye discharge ENT: denies: ear pain, throat pain Respiratory: denies: cough, orthopnea, shortness of breath Cardiovascular: denies: chest pain, palpitations Endocrine: increased thirst, other (blurry vision) Gastrointestinal: nausea, vomiting Genitourinary: denies: dysuria Musculoskeletal: denies: back pain Neurological: headache, weakness ED Past Medical Hx - Past Medical History Previous Medical History?: Yes Hx Hypertension: Yes Hx Diabetes: Yes Additional medical history: HEP B - Surgical History Past Surgical History?: No - Family History Family history: no significant - Social History Smoking Status: Current Every Day Smoker Substance Use Type: Alcohol, Marijuana - Medications Home Medications: Home Medications Medication Instructions Recorded Confirmed Last Taken Type Insulin NPH/Regular [NovoLIN 70/30] 25 unit SQ BID #1 vial 09/19/16 Unknown Rx ED Physical Exam - General Limitations: No Limitations General appearance: alert, anxious - Head Head exam: Present: atraumatic, normocephalic - Eye Eye exam: Present: normal appearance, PERRL - ENT ENT exam: Present: normal orophraynx, mucous membranes dry - Neck Neck exam: Present: normal inspection. Absent: tenderness - Respiratory Respiratory exam: Present: normal lung sounds bilaterally, other (tachypnea). Absent: respiratory distress - Cardiovascular Cardiovascular Exam: Present: normal rhythm, tachycardia. Absent: systolic murmur, diastolic murmur, rubs, gallop - GI/Abdominal GI/Abdominal exam: Present: soft, normal bowel sounds. Absent: distended, tenderness - Rectal Rectal exam: Present: deferred - Extremities Exam Extremities exam: Present: normal inspection, full ROM. Absent: tenderness - Back Exam Back exam: Present: normal inspection - Neurological Exam Neurological exam: Present: alert, oriented X3 - Psychiatric Psychiatric exam: Present: normal affect, normal mood - Skin Skin exam: Present: warm, dry, intact, normal color. Absent: rash ED Course Vital Signs 11/01/16 11/01/16 07:55 08:20 Temperature 98.2 F Pulse Rate 101 H Respiratory 20 20 Rate Blood Pressure 161/87 [Left] O2 Sat by Pulse 100 100 Oximetry ED Medical Decision Making - Lab Data Result diagrams: 11/01/16 08:09 11/01/16 08:09 - Medical Decision Making Symptoms a 45-year-old type II diabetic here with elevated blood sugars and lack of insulin for 3 days. Plan to treat with IV fluids check chemistries and will treat with insulin as necessary. 9:14 AM patient with pH of 7 bicarbonate 3 and likely wide anion gap. Potassium is 6.1 but this is likely falsely elevated. Plan to initiate insulin drip aggressively hydrated and will admit to the intensive care unit. Critical Care Time: Yes (45 mins) Critical care attestation.: If time is entered above; I have spent that time in minutes in the direct care of this critically ill patient, excluding procedure time. Critical Care Time: I spent 45 minutes taking care of this critically ill diabetic with DKA. ED Disposition Clinical Impression: DKA, type 1 Disposition: -09 OP ADMIT IP TO THIS HOSP Is pt being admited?: Yes Condition: Stable Instructions: Diabetes Mellitus Type 2 in Adults (ED) Referrals: PRIMARY CARE, [Primary Care Provider] - 3-5 Days
[2016-11-01 08:23] LABS: Mean Corpuscular HGB Conc 26 % (32-34); Red Blood Count 6.36 M/mm3 (3.65-5.03); White Blood Count 18.2 K/mm3 (4.5-11.0)
[2016-11-01 08:30] LABS: Hematocrit 40.1 % (35.5-45.6); Hemoglobin 10.3 gm/dl (11.8-15.2); Mean Corpuscular Volume 63 fl (84-94)
[2016-11-01 08:31] LABS: Mean Corpuscular Hemoglobin 16 pg (28-32); Platelet Count 259 K/mm3 (140-440); Red Cell Distribution Width 21.1 % (13.2-15.2)
[2016-11-01 08:47] LABS: BUN/Creatinine Ratio 14.66; Calcium 9.3 mg/dL (8.4-10.2); Chloride 90.6 mmol/L (98-107)
[2016-11-01 08:48] LABS: Bilirubin,Urine NEG (Negative); Blood,Urine SM (Negative); Ketones,Urine 80 mg/dL (Negative); Leukocyte Esterase,Urine NEG (Negative); Mucus,Urine FEW /HPF; Nitrite,Urine NEG (Negative); Urobilinogen,Urine < 2.0 mg/dL (<2.0); WBC,Urine < 1.0 /HPF (0.0-6.0)
[2016-11-01 09:07] LABS: Potassium 6.1 mmol/L (3.6-5.0)
[2016-11-01] MEDS ORDERED: D50W (25GM) IV PRN ×2 (09:08→12:00)
[2016-11-01 09:38] LABS: Blastocytes % (Manual) 0 %
[2016-11-01 09:39] LABS: Basophils % (Manual) 0 % (0.0-1.8); Eosinophils % (Manual) 0 % (0.0-4.3)
[2016-11-01 09:40] LABS: Anisocytosis 1+; Diff Status Complete; Large Platelets Few; Microcytosis 2+; Platelet Estimate Consistent w Auto
--- NOTE | 2016-11-01 09:57 | XRay Report ---
Single view chest: Compared to 09/18/16. History: Tachycardia. Findings: Normal cardiomediastinal silhouette. Trachea is midline. No consolidation, pneumothorax or pleural effusion. Impression: No acute cardiopulmonary findings.
[2016-11-01] MEDS ORDERED: NovoLIN R 100 UNITS in NACL 0.9% 99 ML IV SCH (10:00)
[2016-11-01] MEDS ORDERED: D5W/0.45% NACL/KCL 20 MEQ 20 MEQ/1,000 ML BAG IV SCH ×2 (10:00→11:00)
[2016-11-01] MEDS ORDERED: KCL 10MEQ/100ML 10 MEQ/100 ML BAG IV SCH (10:00)
[2016-11-01] MEDS ORDERED: MORPHINE IV ONE (10:14)
[2016-11-01] MEDS ORDERED: MORPHINE ONE (10:18)
[2016-11-01] MEDS: NovoLIN R 100 UNITS in NACL 0.9% 99 ML IV SCH (11:06)
--- NOTE | 2016-11-01 11:10 | History and Physical Report ---
History of Present Illness Date of examination: 11/01/16 Date of admission: 11/01/16 09:19 Chief complaint: Nausea and vomiting, at bedside History of present illness: Patient is a 45-year-old man with a history of insulin-dependent type 2 diabetes mellitus, tobacco dependency and alcohol abuse (last alcoholic drink was 3 days ago) who hasn't seen a physician in proximally 4 years (he uses OTC 70/30 insulin to control his blood sugars) who presents with severe intermittent intractable bilious nonbloody non-nausea vomiting with diffuse generalized nonradiating abdominal pains without any aggravating or relieving factors. He's been without insulin for 3 days. He also gives a history of severe occipital headaches or blurry vision. He has unquantifiable unintentional weight loss, he noted that his temples and jaws are sunken in. He also complains of urinary retention with hesitancy but he feels like he has to go frequently. He is thirsty. Patient denies any chest pain, shortness of breath, cough. Past medical history: As HPI including 1 insulin-dependent diabetes mellitus 2 tobacco dependency 3 alcohol abuse Past surgical history: He denies Social history: He smokes half a pack of cigarettes a day, He drinks alcohol daily, no other illegal drugs, at bedside Family history: Mother had a brain aneurysm, and diabetes ROS: as HPI and all other ROS reviewed and negative. Medications and Allergies Allergies Allergy/AdvReac Type Severity Reaction Status Date / Time No Known Allergies Allergy Verified 02/28/16 19:36 Home Medications Medication Instructions Recorded Confirmed Last Taken Type Insulin NPH/Regular [NovoLIN 70/30] 25 unit SQ BID #1 vial 09/19/16 Unknown Rx Active Meds: Active Medications Dextrose (D50w (25gm)) 0 ml IV PRN PRN PRN Reason: Hypoglycemia Potassium Chloride/Dextrose/Sod Cl (D5w/0.45% Nacl/Kcl 20 Meq) 20 meq in 1,000 mls @ 125 mls/hr IV DIRECT ANAT Sodium Chloride (Nacl 0.9% 1000 Ml) 1,000 mls @ 999 mls/hr IV BOLUS ONE Stop: 11/01/16 11:54 Insulin Human Regular 100 (units/ Sodium Chloride) 100 mls @ 1 mls/hr IV TITR ANAT; 1 UNITS/HR PRN Reason: Protocol Review of Systems Constitutional: weight loss, chills, anorexia, fatigue, no fever, no sweats Eyes: bilateral: blurred vision Ears, nose, mouth and throat: no ear pain, no ear discharge Cardiovascular: no chest pain, no orthopnea Respiratory: no cough, no cough with sputum Gastrointestinal: abdominal pain, nausea, vomiting, change in bowel habits, no diarrhea Genitourinary Male: urinary hesitancy, no dysuria, no hematuria Rectal: no pain, no incontinence Musculoskeletal: no neck stiffness, no neck pain Integumentary: no rash Neurological: weakness, no head injury, no transient paralysis Psychiatric: no anxiety, no memory loss Endocrine: no cold intolerance, no heat intolerance Hematologic/Lymphatic: no easy bruising Allergic/Immunologic: no urticaria Exam - Physical Exam Narrative exam: GEN: Thin cachectic ill-appearing man in no respiratory distress wake alert oriented 3 HEENT: NCAT, PERRL, EOMI, OP CLEAR but dry NECK: SUPPLE, NO THYROMEGALY, NO JVD, NO LAD CVS: Regular tachycardia NORMAL S1S2 LUNGS/CHEST: CTA B, NORMAL CHEST EXPANSION B, GOOD AIR ENTRY B ABD: SOFT, nondistended diffuse tenderness, GBS, NO REBOUND OR GUARDING EXT/SKIN: NO SIGNIFICANT EDEMA OR RASH, mucous membranes dry MSK: FROM X 4 EXTREMITIES NEURO: CN 2-12 GROSSLY INTACT, NO FOCAL DEFICITS PSY: CALM - Constitutional Vitals: Temp Pulse Resp BP Pulse Ox 98.2 F 101 H 20 161/87 100 11/01/16 07:55 11/01/16 07:55 11/01/16 08:59 11/01/16 07:55 11/01/16 08:20 Results - Labs CBC & Chem 7: 11/01/16 08:09 11/01/16 08:09 Assessment and Plan Patient is a 45-year-old man with a history of insulin-dependent type 2 diabetes mellitus, tobacco dependency and alcohol abuse (last alcoholic drink was 3 days ago) who hasn't seen a physician in approximately 4 years (he uses OTC 70/30 insulin to control his blood sugars) who presents with severe intermittent intractable bilious nonbloody nausea, vomiting with diffuse generalized nonradiating abdominal pains without any aggravating or relieving factors. He's been without insulin for 3 days. He also gives a history of severe occipital headaches with blurry vision. He has unquantifiable unintentional weight loss, he noted that his temples and jaws are sunken in. He also complains of urinary retention with hesitancy but he feels like he has to go frequently. He is thirsty. Patient denies any chest pain, shortness of breath, cough. Chest x-ray read as no acute findings Potassium 6.1 VBG 7.001 UA negative for UTI but positive for ketones White blood cell count 18.1 Hemoglobin 10.3, hemoglobin was 9.5 with MCV of September and February 2016 hemoglobin was 11 with MCV of 66 Creatinine 1.5 last creatinine was 0.7 on 09/19/2016 Blood glucose 440 CO2 3 09/28/2016 UDS was positive for amphetamine -DKA: Hydrate with IV fluids, DKA protocol use, admitted to ICU consult critical care, counseling noncompliance -Hyperkalemia: Treatment with insulin, repeat levels, kayexalate -Unintentional weight loss: Consult dietitian -Sirs: Treat with Empiric IV Rocephin, urine culture and blood culture -Severe headaches: Stat CT head -Microcytic chronic anemia with high risk factors smoking: He needs a colonoscopy with the unintentional weight loss -DVT prophylaxis: Add subcutaneous heparin and follow CBC closely -Metabolic acidosis, and high anion gap: Treat the DKA -Acute renal failure due to vasomotor nephropathy: Treat with IV fluids and get a renal ultrasound The high probability of a clinically significant, sudden or life threatening deterioration of the [neurologic,cardiac] system(s) required my full and direct attention, intervention and personal management. The aggregate critical care time was [ 40 ] minutes. This time is in addition to time spent performing reported procedures but includes the following: [x] Data Review and interpretation [x] Patient assessment and monitoring of vital signs [x] Documentation [x] Medication orders and management Full code
[2016-11-01] MEDS ORDERED: KIONEX PO ONE (11:24)
[2016-11-01] MEDS: ROCEPHIN/NS 1 GM/50 ML 1 GM/50 ML BAG IV SCH (12:19)
[2016-11-01 12:51] LABS: Urine Drugs of Abuse Note Disclamer
[2016-11-01] MEDS ORDERED: MORPHINE IV PRN (12:59)
--- NOTE | 2016-11-01 13:05 | Ultrasound Report ---
Renal sonogram: History: ARF Findings: Right kidney 10.9 x 5.1 x 5.9 cm. Cortical thickness is 1.3 cm. Left kidney 11.4 x 5.6 x 5.2 cm. Cortical thickness is 1.4 cm. No mass. No hydronephrosis. Impression: Essentially negative renal sonogram.
[2016-11-01] MEDS: ZOFRAN IV PRN ×3 (13:19→23:25)
[2016-11-01] MEDS: MORPHINE IV PRN ×3 (13:20→23:25)
[2016-11-01 14:04] LABS: BUN/Creatinine Ratio 17.69; Blood Urea Nitrogen 23 mg/dL (9-20); Calcium 8.8 mg/dL (8.4-10.2); Chloride 102.9 mmol/L (98-107); Glucose 244 mg/dL (75-100); Potassium 5.3 mmol/L (3.6-5.0); Sodium 138 mmol/L (137-145)
[2016-11-01 14:06] LABS: Magnesium 2.5 mg/dL (1.7-2.3); Phosphorous 4.9 mg/dL (2.5-4.5)
[2016-11-01 14:34] LABS: Anion Gap 38 mmol/L; Carbon Dioxide < 2.0 mmol/L (22-30)
--- NOTE | 2016-11-01 15:20 | Consultation ---
History of Present Illness Consult date: 11/01/16 Requesting physician: MILKA MONZON Reason for consult: other (DKA) History of present illness: 45 yo w/ DM2, out of insulin x 3 days, developed N/V, weakness, epigastric abd pain, poor PO intake, SOB, confusion. Found to have DKA, on insulin drip now. Not feeling any better yet. Denies fevers, chills, chest pain. Active Medications Dextrose (D50w (25gm)) 50 ml IV PRN PRN PRN Reason: HYPOGLYCEMIA Heparin Sodium (Porcine) (Heparin) 5,000 unit SUB-Q Q12HR ANAT Insulin Human Regular 100 (units/ Sodium Chloride) 100 mls @ 1 mls/hr IV TITR ANAT; 1 UNITS/HR PRN Reason: Protocol Last Titration: 11/01/16 14:05 Dose: 5 units/hr, 5 mls/hr Ceftriaxone Sodium (Rocephin/Ns 1 Gm/50 Ml) 1 gm in 50 mls @ 100 mls/hr IV Q24HR ANAT PRN Reason: Protocol Last Admin: 11/01/16 12:19 Dose: 100 mls/hr Sodium Chloride (Nacl 0.9% 1000 Ml) 1,000 mls @ 999 mls/hr IV BOLUS ONE Stop: 11/01/16 15:39 Last Admin: 11/01/16 14:43 Dose: 999 mls/hr Dextrose/Sodium Chloride (D5ns) 1,000 mls @ 75 mls/hr IV DIRECT ANAT Morphine Sulfate (Morphine) 2 mg IV Q4H PRN PRN Reason: Pain, Moderate (4-6) Last Admin: 11/01/16 13:20 Dose: 2 mg Ondansetron HCl (Zofran) 4 mg IV Q4H PRN PRN Reason: Nausea And Vomiting Last Admin: 11/01/16 13:19 Dose: 4 mg Past History Past Medical History: other (DM2) Social history: smoking, alcohol abuse, full code. denies: prescription drug abuse, IV drug use Family history: no significant family history Medications and Allergies Allergies Allergy/AdvReac Type Severity Reaction Status Date / Time No Known Allergies Allergy Verified 02/28/16 19:36 Home Medications Medication Instructions Recorded Confirmed Last Taken Type Insulin NPH/Regular [NovoLIN 70/30] 25 unit SQ BID #1 vial 09/19/16 Unknown Rx Active Meds: Active Medications Dextrose (D50w (25gm)) 50 ml IV PRN PRN PRN Reason: HYPOGLYCEMIA Heparin Sodium (Porcine) (Heparin) 5,000 unit SUB-Q Q12HR ANAT Insulin Human Regular 100 (units/ Sodium Chloride) 100 mls @ 1 mls/hr IV TITR ANAT; 1 UNITS/HR PRN Reason: Protocol Last Titration: 11/01/16 14:05 Dose: 5 units/hr, 5 mls/hr Ceftriaxone Sodium (Rocephin/Ns 1 Gm/50 Ml) 1 gm in 50 mls @ 100 mls/hr IV Q24HR ANAT PRN Reason: Protocol Last Admin: 11/01/16 12:19 Dose: 100 mls/hr Sodium Chloride (Nacl 0.9% 1000 Ml) 1,000 mls @ 999 mls/hr IV BOLUS ONE Stop: 11/01/16 15:39 Last Admin: 11/01/16 14:43 Dose: 999 mls/hr Dextrose/Sodium Chloride (D5ns) 1,000 mls @ 75 mls/hr IV DIRECT ANAT Morphine Sulfate (Morphine) 2 mg IV Q4H PRN PRN Reason: Pain, Moderate (4-6) Last Admin: 11/01/16 13:20 Dose: 2 mg Ondansetron HCl (Zofran) 4 mg IV Q4H PRN PRN Reason: Nausea And Vomiting Last Admin: 11/01/16 13:19 Dose: 4 mg Review of Systems All systems: negative Physical Examination Vital signs: Vital Signs BP 165/69 11/01/16 07:53 Vital Signs - 24 hr 11/01/16 11/01/16 11/01/16 07:53 07:55 08:00 Temperature 98.2 F Pulse Rate 101 H Respiratory 20 Rate Blood Pressure 165/69 165/69 Blood Pressure 161/87 [Left] O2 Sat by Pulse 100 100 Oximetry 11/01/16 11/01/16 11/01/16 08:10 08:20 08:30 Temperature Pulse Rate Respiratory 20 Rate Blood Pressure 154/83 181/92 181/92 Blood Pressure [Left] O2 Sat by Pulse 100 100 100 Oximetry 11/01/16 11/01/16 11/01/16 08:40 08:50 08:59 Temperature Pulse Rate 113 H 103 H Respiratory 24 25 H 20 Rate Blood Pressure 138/48 138/48 Blood Pressure [Left] O2 Sat by Pulse 100 Oximetry 11/01/16 11/01/16 11/01/16 09:00 09:10 09:20 Temperature Pulse Rate 101 H 105 H 102 H Respiratory 27 H 26 H 25 H Rate Blood Pressure 138/48 152/72 152/72 Blood Pressure [Left] O2 Sat by Pulse 100 100 100 Oximetry 11/01/16 11/01/16 11/01/16 09:30 09:41 09:51 Temperature Pulse Rate 112 H 118 H 108 H Respiratory 23 24 28 H Rate Blood Pressure 152/72 138/48 155/70 Blood Pressure [Left] O2 Sat by Pulse 100 98 100 Oximetry 11/01/16 11/01/16 11/01/16 10:01 10:10 10:15 Temperature Pulse Rate 106 H 112 H Respiratory 23 27 H 22 Rate Blood Pressure 155/70 155/70 Blood Pressure [Left] O2 Sat by Pulse 100 100 Oximetry 11/01/16 11/01/16 11/01/16 10:33 10:40 10:45 Temperature Pulse Rate Respiratory 22 Rate Blood Pressure 155/70 155/70 Blood Pressure [Left] O2 Sat by Pulse 84 Oximetry 11/01/16 11/01/16 11/01/16 10:51 11:00 11:54 Temperature Pulse Rate 106 H 103 H 142 H Respiratory 26 H 25 H 28 H Rate Blood Pressure 155/70 159/72 Blood Pressure [Left] O2 Sat by Pulse 100 100 100 Oximetry 11/01/16 11/01/16 11/01/16 12:00 12:11 12:21 Temperature Pulse Rate 112 H 111 H 109 H Respiratory 27 H 23 26 H Rate Blood Pressure 138/62 138/62 138/62 Blood Pressure [Left] O2 Sat by Pulse 100 100 100 Oximetry 11/01/16 11/01/16 11/01/16 12:30 12:41 12:51 Temperature Pulse Rate 103 H 105 H 103 H Respiratory 22 22 22 Rate Blood Pressure 147/82 147/82 147/82 Blood Pressure [Left] O2 Sat by Pulse 100 100 100 Oximetry 11/01/16 11/01/16 11/01/16 13:01 13:11 13:21 Temperature Pulse Rate 139 H 103 H 101 H Respiratory 31 H 21 29 H Rate Blood Pressure 167/112 167/112 167/112 Blood Pressure [Left] O2 Sat by Pulse 100 100 100 Oximetry 11/01/16 11/01/16 11/01/16 13:30 13:41 13:51 Temperature Pulse Rate 100 H 99 H 98 H Respiratory 31 H 21 19 Rate Blood Pressure 140/72 140/72 140/72 Blood Pressure [Left] O2 Sat by Pulse 100 100 100 Oximetry 11/01/16 11/01/16 14:00 14:11 Temperature Pulse Rate 94 H 90 Respiratory 17 17 Rate Blood Pressure 125/70 125/70 Blood Pressure [Left] O2 Sat by Pulse 100 100 Oximetry General appearance: no acute distress, alert (mildly confused) Eyes: non-icteric ENT: oropharynx moist Neck: supple Effort: normal Ascultation: Bilateral: clear Cardiovascular: regular rate and rhythm (no mrg) Gastrointestinal: normoactive bowel sounds, soft, tender (diffusely tender without guarding or rebound) Integumentary: normal Extremities: no cyanosis, no edema, pink and warm normal mental status (mildly confused), non-focal exam mood appropriate, affect normal Results - Laboratory Findings CBC and BMP: 11/01/16 08:09 11/01/16 13:00 Abnormal lab findings: Abnormal Labs 11/01/16 11/01/16 11/01/16 10:56 12:20 13:00 Potassium Carbon Dioxide BUN Glucose POC Glucose 388 H Hemoglobin A1c 8.8 H Phosphorus Magnesium Urine Creatinine 24.5 H 11/01/16 11/01/16 13:00 13:00 Potassium 5.3 H Carbon Dioxide < 2.0 L* BUN 23 H Glucose 244 H POC Glucose Hemoglobin A1c Phosphorus 4.90 H Magnesium 2.50 H Urine Creatinine - Diagnostic Findings Chest x-ray: report reviewed Assessment and Plan Imp: 1. Volume depletion 2. DKA 3. N/V 2/2 above but r/o pancreatitis, etc. 4. DOC 5. Hyperkalemia 2/2 above 6. Chronic nicotine dependence, cigs 7. Metabolic enceph. Rec: 1. Extra NS bolus 2. Insulin drip 3. D5NS 4. [place]-culture; agree w/ empiric ABX for now 5. Lipase/LFTs 6. Stop smoking/EtOH 7. DVT PPx Plan of care reviewed w/ patient/, they understand/agree
[2016-11-01] MEDS ORDERED: D5/0.45NS 1,000 ML IV SCH (16:00)
[2016-11-01] MEDS: D5NS 1,000 ML IV SCH (16:01)
[2016-11-01 16:29] LABS: Blood Urea Nitrogen 21 mg/dL (9-20); Calcium 8.9 mg/dL (8.4-10.2); Chloride 104.7 mmol/L (98-107); Glucose 152 mg/dL (75-100); Potassium 5.4 mmol/L (3.6-5.0); Sodium 141 mmol/L (137-145)
[2016-11-01 16:33] LABS: Alanine Aminotransferase 42 units/L (7-56); Albumin 4.5 g/dL (3.9-5); Albumin/Globulin Ratio 1.1 %; Alkaline Phosphatase 121 units/L (35-129); Total Protein 8.5 g/dL (6.3-8.2)
[2016-11-01 16:38] LABS: Bilirubin,Direct < 0.2 mg/dL (0-0.2); Bilirubin,Indirect 0.1 mg/dL
[2016-11-01 16:40] LABS: Anion Gap 38 mmol/L; Carbon Dioxide 4 mmol/L (22-30)
--- NOTE | 2016-11-01 18:01 | Cat Scan Report ---
FINAL REPORT EXAM: CT HEAD/BRAIN WO CON HISTORY: severe headache TECHNIQUE: Standard unenhanced CT of the head at 5.0 millimeter axial increments. PRIORS: None. FINDINGS: The ventricular system is normal in size and configuration. There is no evidence for parenchymal volume loss. There is no evidence for mass lesion, mass effect, midline shift, acute intracranial hemorrhage, or acute ischemia/ infarction. No evidence for acute skull fracture is seen. No abnormality in the overlying scalp soft tissues is seen. Visualized paranasal sinuses demonstrates mild mucosal thickening in the right maxillary sinus. IMPRESSION: No acute intracranial process noted.
[2016-11-01 18:22] LABS: BUN/Creatinine Ratio 14.16; Blood Urea Nitrogen 17 mg/dL (9-20); Calcium 8.6 mg/dL (8.4-10.2); Chloride 104.8 mmol/L (98-107); Glucose 132 mg/dL (75-100); Potassium 5.3 mmol/L (3.6-5.0); Sodium 141 mmol/L (137-145)
[2016-11-01 18:28] LABS: Anion Gap 35 mmol/L
[2016-11-01 18:29] LABS: Carbon Dioxide 7 mmol/L (22-30)
[2016-11-01 18:45] LABS: Lipase 873 units/L (13-60)
[2016-11-01 20:35] LABS: BUN/Creatinine Ratio 13.63; Blood Urea Nitrogen 15 mg/dL (9-20); Calcium 8.7 mg/dL (8.4-10.2); Chloride 104.5 mmol/L (98-107); Glucose 129 mg/dL (75-100); Potassium 5.5 mmol/L (3.6-5.0); Sodium 139 mmol/L (137-145)
[2016-11-01 20:41] LABS: Anion Gap 33 mmol/L
[2016-11-01 20:45] LABS: Carbon Dioxide 7 mmol/L (22-30)
[2016-11-02] MEDS: HEPARIN SUB-Q SCH ×2 (01:05→12:26)
[2016-11-02] MEDS: ZOFRAN IV PRN ×3 (03:00→10:47)
[2016-11-02] MEDS: MORPHINE IV PRN ×5 (03:05→19:11)
[2016-11-02 03:34] LABS: Anion Gap 24 mmol/L; Blood Urea Nitrogen 12 mg/dL (9-20); Calcium 8.8 mg/dL (8.4-10.2); Carbon Dioxide 11 mmol/L (22-30); Chloride 106.9 mmol/L (98-107); Glucose 125 mg/dL (75-100); Potassium 4.3 mmol/L (3.6-5.0); Sodium 138 mmol/L (137-145)
[2016-11-02 04:20] LABS: Mean Corpuscular HGB Conc 28 % (32-34); Platelet Count 227 K/mm3 (140-440); Red Blood Count 5.67 M/mm3 (3.65-5.03); White Blood Count 14.1 K/mm3 (4.5-11.0)
[2016-11-02 04:21] LABS: Hematocrit 32.5 % (35.5-45.6); Hemoglobin 9.1 gm/dl (11.8-15.2); Mean Corpuscular Hemoglobin 16 pg (28-32); Mean Corpuscular Volume 57 fl (84-94); Red Cell Distribution Width 20.7 % (13.2-15.2)
[2016-11-02 04:36] LABS: Anion Gap 23 mmol/L; BUN/Creatinine Ratio 13.33; Blood Urea Nitrogen 12 mg/dL (9-20); Calcium 8.9 mg/dL (8.4-10.2); Carbon Dioxide 13 mmol/L (22-30); Chloride 108.6 mmol/L (98-107); Glucose 123 mg/dL (75-100); Potassium 4.1 mmol/L (3.6-5.0); Sodium 140 mmol/L (137-145)
--- NOTE | 2016-11-02 09:50 | Progress Note ---
Assessment and Plan Volume depletion DKA N/V Polysubstance abuse- Meth,Cocaine Tobacco.See Tox panels on EMR DOC Hyperkalemia Chronic nicotine dependence Metabolic enceph.Improving Diabetic neuropathy- c/o chronic lower extremities parestesia,discomfort , pain Rec Stat NPH ,D5W once BS < 250 mg/dl DVT prophylaxis Monitor for withdrawal Sx Discussed Dm control and risk behavior.PT denies, defers this CCT 31 min Subjective Date of service: 11/02/16 Interval history: Multiple complains, mostly discomfort,non focal pain.No SOB or cough Objective Vital Signs - 12hr 11/01/16 11/01/16 11/01/16 21:51 22:00 22:11 Temperature Pulse Rate 88 89 89 Pulse Rate [ 96 H Apical] Pulse Rate [ 92 H From Monitor] Respiratory 14 18 19 Rate Respiratory 16 Rate [denies] Blood Pressure 128/64 134/68 134/68 O2 Sat by Pulse 100 100 100 Oximetry 11/01/16 11/01/16 11/01/16 22:21 22:30 22:41 Temperature Pulse Rate 87 85 93 H Pulse Rate [ Apical] Pulse Rate [ From Monitor] Respiratory 22 15 16 Rate Respiratory Rate [denies] Blood Pressure 134/68 123/58 123/58 O2 Sat by Pulse 100 100 100 Oximetry 11/01/16 11/01/16 11/01/16 22:51 23:00 23:11 Temperature Pulse Rate 86 93 H 111 H Pulse Rate [ Apical] Pulse Rate [ From Monitor] Respiratory 16 22 30 H Rate Respiratory Rate [denies] Blood Pressure 123/58 140/72 140/72 O2 Sat by Pulse 100 100 100 Oximetry 11/01/16 11/01/16 11/01/16 23:21 23:25 23:30 Temperature Pulse Rate 93 H 94 H Pulse Rate [ Apical] Pulse Rate [ From Monitor] Respiratory 8 L 24 13 Rate Respiratory Rate [denies] Blood Pressure 140/72 128/64 O2 Sat by Pulse 100 100 Oximetry 11/01/16 11/01/16 11/01/16 23:41 23:51 23:55 Temperature Pulse Rate 94 H 94 H Pulse Rate [ Apical] Pulse Rate [ From Monitor] Respiratory 15 16 16 Rate Respiratory Rate [denies] Blood Pressure 128/64 128/64 O2 Sat by Pulse 100 100 Oximetry 11/02/16 11/02/16 11/02/16 00:00 00:03 00:11 Temperature Pulse Rate 94 H 93 H 94 H Pulse Rate [ 94 H Apical] Pulse Rate [ 90 From Monitor] Respiratory 16 16 15 Rate Respiratory Rate [denies] Blood Pressure 129/64 129/64 129/64 O2 Sat by Pulse 100 100 100 Oximetry 11/02/16 11/02/16 11/02/16 00:21 00:30 00:35 Temperature 99.2 F Pulse Rate 92 H 95 H Pulse Rate [ Apical] Pulse Rate [ From Monitor] Respiratory 15 16 Rate Respiratory Rate [denies] Blood Pressure 129/64 135/67 O2 Sat by Pulse 100 100 Oximetry 11/02/16 11/02/16 11/02/16 00:40 00:51 01:00 Temperature Pulse Rate 93 H 96 H 95 H Pulse Rate [ Apical] Pulse Rate [ From Monitor] Respiratory 14 14 15 Rate Respiratory Rate [denies] Blood Pressure 131/59 135/67 136/74 O2 Sat by Pulse 100 100 100 Oximetry 11/02/16 11/02/16 11/02/16 01:11 01:21 01:30 Temperature Pulse Rate 89 92 H 89 Pulse Rate [ Apical] Pulse Rate [ From Monitor] Respiratory 15 12 15 Rate Respiratory Rate [denies] Blood Pressure 136/74 136/74 136/74 O2 Sat by Pulse 100 100 100 Oximetry 11/02/16 11/02/16 11/02/16 01:41 01:51 02:00 Temperature Pulse Rate 96 H 89 86 Pulse Rate [ 88 Apical] Pulse Rate [ 85 From Monitor] Respiratory 15 16 11 L Rate Respiratory Rate [denies] Blood Pressure 136/74 136/74 127/65 O2 Sat by Pulse 100 100 100 Oximetry 11/02/16 11/02/16 11/02/16 02:11 02:21 02:30 Temperature Pulse Rate 90 84 82 Pulse Rate [ Apical] Pulse Rate [ From Monitor] Respiratory 15 10 L 14 Rate Respiratory Rate [denies] Blood Pressure 127/65 127/65 133/69 O2 Sat by Pulse 100 100 100 Oximetry 11/02/16 11/02/16 11/02/16 02:41 02:51 03:00 Temperature Pulse Rate 82 88 84 Pulse Rate [ Apical] Pulse Rate [ From Monitor] Respiratory 14 15 14 Rate Respiratory Rate [denies] Blood Pressure 133/69 133/69 133/69 O2 Sat by Pulse 100 100 100 Oximetry 11/02/16 11/02/16 11/02/16 03:05 03:11 03:21 Temperature Pulse Rate 83 85 Pulse Rate [ Apical] Pulse Rate [ From Monitor] Respiratory 17 12 12 Rate Respiratory Rate [denies] Blood Pressure 133/69 133/69 O2 Sat by Pulse 100 100 Oximetry 11/02/16 11/02/16 11/02/16 03:25 03:30 03:35 Temperature 98.7 F Pulse Rate 85 Pulse Rate [ Apical] Pulse Rate [ From Monitor] Respiratory 16 17 Rate Respiratory Rate [denies] Blood Pressure 130/74 O2 Sat by Pulse 100 Oximetry 11/02/16 11/02/16 11/02/16 03:41 03:51 04:00 Temperature Pulse Rate 83 87 81 Pulse Rate [ 96 H Apical] Pulse Rate [ 82 From Monitor] Respiratory 12 11 L 14 Rate Respiratory Rate [denies] Blood Pressure 130/74 130/74 128/72 O2 Sat by Pulse 100 100 100 Oximetry 11/02/16 11/02/16 11/02/16 04:11 04:21 04:30 Temperature Pulse Rate 82 83 80 Pulse Rate [ Apical] Pulse Rate [ From Monitor] Respiratory 13 14 10 L Rate Respiratory Rate [denies] Blood Pressure 128/72 128/72 127/73 O2 Sat by Pulse 100 100 100 Oximetry 11/02/16 11/02/16 11/02/16 04:40 04:51 05:00 Temperature Pulse Rate 93 H 83 83 Pulse Rate [ Apical] Pulse Rate [ From Monitor] Respiratory 17 14 11 L Rate Respiratory Rate [denies] Blood Pressure 127/73 127/73 135/75 O2 Sat by Pulse 100 100 100 Oximetry 11/02/16 11/02/16 11/02/16 05:11 05:21 05:30 Temperature Pulse Rate 84 82 80 Pulse Rate [ Apical] Pulse Rate [ From Monitor] Respiratory 12 13 13 Rate Respiratory Rate [denies] Blood Pressure 135/75 135/75 132/69 O2 Sat by Pulse 100 100 100 Oximetry 11/02/16 11/02/16 11/02/16 05:41 05:51 06:00 Temperature Pulse Rate 82 104 H 80 Pulse Rate [ 88 Apical] Pulse Rate [ 89 From Monitor] Respiratory 14 11 L 15 Rate Respiratory Rate [denies] Blood Pressure 132/69 132/69 134/76 O2 Sat by Pulse 100 100 99 Oximetry 11/02/16 11/02/16 11/02/16 06:11 06:21 06:30 Temperature Pulse Rate 81 78 79 Pulse Rate [ Apical] Pulse Rate [ From Monitor] Respiratory 15 12 16 Rate Respiratory Rate [denies] Blood Pressure 134/76 134/76 127/74 O2 Sat by Pulse 100 100 100 Oximetry 11/02/16 11/02/16 11/02/16 06:41 06:51 07:00 Temperature Pulse Rate 80 77 78 Pulse Rate [ Apical] Pulse Rate [ From Monitor] Respiratory 20 19 18 Rate Respiratory Rate [denies] Blood Pressure 127/74 127/74 137/78 O2 Sat by Pulse 100 100 100 Oximetry 11/02/16 11/02/16 11/02/16 07:11 07:21 07:30 Temperature Pulse Rate 77 77 77 Pulse Rate [ Apical] Pulse Rate [ From Monitor] Respiratory 13 13 17 Rate Respiratory Rate [denies] Blood Pressure 127/74 127/74 128/76 O2 Sat by Pulse 100 100 100 Oximetry 11/02/16 11/02/16 11/02/16 07:41 07:51 08:00 Temperature 99 F Pulse Rate 77 77 71 Pulse Rate [ 78 Apical] Pulse Rate [ From Monitor] Respiratory 14 17 15 Rate Respiratory Rate [denies] Blood Pressure 137/78 137/78 130/74 O2 Sat by Pulse 100 100 100 Oximetry 11/02/16 08:11 Temperature Pulse Rate 77 Pulse Rate [ Apical] Pulse Rate [ From Monitor] Respiratory 15 Rate Respiratory Rate [denies] Blood Pressure 130/74 O2 Sat by Pulse 100 Oximetry Constitutional: no acute distress, alert (mildly confused) Eyes: non-icteric ENT: oropharynx moist Neck: supple Effort: normal Ascultation: Bilateral: clear Cardiovascular: regular rate and rhythm (no mrg) Gastrointestinal: normoactive bowel sounds, soft, tender (diffusely tender without guarding or rebound) Integumentary: normal Extremities: no cyanosis, no edema, pink and warm Neurologic: normal mental status (mildly confused), non-focal exam Psychiatric: mood appropriate, affect normal CBC and BMP: 11/03/16 04:12 11/03/16 04:12 Abnormal lab findings: Abnormal Labs 11/01/16 11/01/16 11/01/16 10:56 11:59 12:20 WBC RBC Hgb Hct MCV MCH MCHC RDW Potassium Chloride Carbon Dioxide BUN Glucose POC Glucose 388 H 310 H Hemoglobin A1c Lactic Acid Phosphorus Magnesium AST Total Protein Lipase Urine Creatinine 24.5 H 11/01/16 11/01/16 11/01/16 13:00 13:00 13:00 WBC RBC Hgb Hct MCV MCH MCHC RDW Potassium 5.3 H Chloride Carbon Dioxide < 2.0 L* BUN 23 H Glucose 244 H POC Glucose Hemoglobin A1c 8.8 H Lactic Acid Phosphorus 4.90 H Magnesium 2.50 H AST Total Protein Lipase Urine Creatinine 11/01/16 11/01/16 11/01/16 13:05 14:03 15:20 WBC RBC Hgb Hct MCV MCH MCHC RDW Potassium Chloride Carbon Dioxide BUN Glucose POC Glucose 257 H 272 H 177 H Hemoglobin A1c Lactic Acid Phosphorus Magnesium AST Total Protein Lipase Urine Creatinine 11/01/16 11/01/16 11/01/16 15:50 15:50 15:56 WBC RBC Hgb Hct MCV MCH MCHC RDW Potassium 5.4 H Chloride Carbon Dioxide 4 L* BUN 21 H Glucose 152 H POC Glucose 157 H Hemoglobin A1c Lactic Acid Phosphorus Magnesium AST 44 H Total Protein 8.5 H Lipase 873 H Urine Creatinine 11/01/16 11/01/16 11/01/16 16:58 17:10 17:10 WBC RBC Hgb Hct MCV MCH MCHC RDW Potassium 5.3 H Chloride Carbon Dioxide 7 L* BUN Glucose 132 H POC Glucose 131 H Hemoglobin A1c Lactic Acid 2.10 H* Phosphorus Magnesium AST Total Protein Lipase Urine Creatinine 11/01/16 11/01/16 11/01/16 18:07 19:10 19:50 WBC RBC Hgb Hct MCV MCH MCHC RDW Potassium Chloride Carbon Dioxide BUN Glucose POC Glucose 153 H 140 H 142 H Hemoglobin A1c Lactic Acid Phosphorus Magnesium AST Total Protein Lipase Urine Creatinine 11/01/16 11/01/16 11/01/16 19:58 20:49 22:12 WBC RBC Hgb Hct MCV MCH MCHC RDW Potassium 5.5 H Chloride Carbon Dioxide 7 L* BUN Glucose 129 H POC Glucose 145 H 146 H Hemoglobin A1c Lactic Acid Phosphorus Magnesium AST Total Protein Lipase Urine Creatinine 11/01/16 11/01/16 11/02/16 22:54 23:55 01:30 WBC RBC Hgb Hct MCV MCH MCHC RDW Potassium Chloride Carbon Dioxide BUN Glucose POC Glucose 148 H 162 H 137 H Hemoglobin A1c Lactic Acid Phosphorus Magnesium AST Total Protein Lipase Urine Creatinine 11/02/16 11/02/16 11/02/16 02:11 02:19 03:14 WBC RBC Hgb Hct MCV MCH MCHC RDW Potassium Chloride Carbon Dioxide 11 L BUN Glucose 125 H POC Glucose 135 H 132 H Hemoglobin A1c Lactic Acid Phosphorus Magnesium AST Total Protein Lipase Urine Creatinine 11/02/16 11/02/16 11/02/16 04:02 04:02 04:40 WBC 14.1 H RBC 5.67 H Hgb 9.1 L Hct 32.5 L D MCV 57 L D MCH 16 L MCHC 28 L RDW 20.7 H Potassium Chloride 108.6 H Carbon Dioxide 13 L BUN Glucose 123 H POC Glucose 137 H Hemoglobin A1c Lactic Acid Phosphorus Magnesium AST Total Protein Lipase Urine Creatinine 11/02/16 11/02/16 04:50 05:20 WBC RBC Hgb Hct MCV MCH MCHC RDW Potassium Chloride Carbon Dioxide BUN Glucose POC Glucose 127 H 121 H Hemoglobin A1c Lactic Acid Phosphorus Magnesium AST Total Protein Lipase Urine Creatinine Chest x-ray: report reviewed, image reviewed
[2016-11-02] MEDS: ROCEPHIN/NS 1 GM/50 ML 1 GM/50 ML BAG IV SCH (10:48)
--- NOTE | 2016-11-02 12:40 | Admit Criteria Form ---
Admission Criteria Documentation: DIABETES Clinical Indications for Admission to Inpatient Care (Place 'X' for any and all applicable criteria): Admission is indicated by presence of ALL (if I & II) or ANY ONE (if III or IV) of the following (1)(2)(3)(4): [X ]I. Diabetes is uncontrolled as indicated by ANY ONE of the following: [ X]a) Diabetic ketoacidosis as indicated by ALL of the following (8): [X ]i) Hyperglycemia (eg, plasma glucose greater than 200 mg /dL (11.1 mmol/L)) [X ]ii) Acidosis (eg, arterial pH less than 7.30, serum bicarbonate level less than 15 mEq/L (mmol/L)) [X ]iii) Moderate ketonuria or ketonemia [ ]b) Hyperglycemic hyperosmolar state as indicated by ALL of the following(9)(10): [ ]i) Neurologic dysfunction (eg, stupor, coma, hemiparesis , seizure)(13) [ ]ii) Plasma glucose greater than 600 mg/dL (33.3 mmol/L) [ ]iii) Serum osmolality greater than 320 mOsm/kg (mmol/kg) [ ]c) Severe signs or symptoms secondary to hyperglycemia indicated by ANY ONE of the following: [ ]i) Altered mental status(10) [ ]ii) Significant hypovolemia or dehydration [ ]iii) Intractable nausea or vomiting [ ]iv) Unexplained fever or severe infection [ ]v) Severe electrolyte abnormality (eg, hypokalemia, hyperkalemia, hypernatremia) [ X]II. Management at other levels of care (Also use Diabetes: Observation Care as appropriate) is not feasible because of ANY ONE of the following: [ X]a) Condition was not adequately corrected with treatment at other levels of care. [ ]b) Treatment at other levels of care is not appropriate because of condition severity (eg, hyperosmolar coma). [ ]III. Contraindications and/or Inappropriate clinical situations for Observational Care in patients with Diabetes, when ANY ONE of the following is required: [ ]a) Patient require specific diagnostic workup or therapeutic intervention 22 [ ]b) Patient with abnormal vital signs or altered mental status 23 [ ]IV. General contraindications and/or Inappropriate clinical situations for Observational Care in patients with Diabetes, when ANY ONE of the following is required: [ ]a) Prediction of prolongation of LOS based on ANY ONE of the following may be considered as a contraindication for observational care 2, 3, 4, 5, 6, 7, 8, 9, 10, 11 [ ]i) Age > 65 yrs. [ ]ii) Patient arriving by ambulance [ ]iii) Patient with high acuity [ ]iv) Patient requiring vital sign monitoring [ ]v) Patient on IV medication [ ]b) Systolic blood pressures 180mmHg 3,12 [ ]c) Patient with altered mental status including delirium and other alteration of consciousness, (3) [ ]d) Patient whose discharge disposition will be to a long term home or rehabilitation home should not be managed in Emergency Department Observation Unit. CMS rule requires 3 days hospital stay before such placement.3,13 [ ]e) Patient with failure to thrive due to broad array of etiologies 3,16,17 [ ]f) Inability to ambulate 3,14 Extended stay beyond goal length of stay may be needed for(3)(20): [ ]a) Treatment of precipitating causes [ ]b) Development of hypoglycemia [ ]c) Complications of treatment [ ]d) Complications of decompensated diabetes (eg, acute gastric dilatation, persistent metabolic or neurologic derangement) [ ]e) Active Comorbidities [ ]f) Older patients( 65 years or older) The original [employer] content created by [employer] has been revised. The portions of the content which have been revised are identified through the use of italic text or in bold,and [facility] has neither reviewed nor approved the modified material. All other unmodified content is copyright [employer]. Please see references footnoted in the original [facility] edition 2016 Admission Criteria Met: Yes
--- NOTE | 2016-11-02 13:06 | Progress Note ---
Assessment and Plan Assessment and plan: Patient is a 45-year-old man with a history of insulin-dependent type 2 diabetes mellitus, tobacco dependency and alcohol abuse (last alcoholic drink was 3 days ago) who hasn't seen a physician in approximately 4 years (he uses OTC 70/30 insulin to control his blood sugars) who presents with severe intermittent intractable bilious nonbloody nausea, vomiting with diffuse generalized nonradiating abdominal pains without any aggravating or relieving factors. He's been without insulin for 3 days. He also gives a history of severe occipital headaches with blurry vision. He has unquantifiable unintentional weight loss, he noted that his temples and jaws are sunken in. He also complains of urinary retention with hesitancy but he feels like he has to go frequently. He is thirsty. Patient denies any chest pain, shortness of breath, cough. Chest x-ray read as no acute findings Potassium 6.1 VBG 7.001 UA negative for UTI but positive for ketones White blood cell count 18.1 Hemoglobin 10.3, hemoglobin was 9.5 with MCV of September and February 2016 hemoglobin was 11 with MCV of 66 Creatinine 1.5 last creatinine was 0.7 on 09/19/2016 Blood glucose 440 CO2 3 09/28/2016 UDS was positive for amphetamine -DKA: Hydrate with IV fluids, DKA protocol use, admitted to ICU consult critical care, counseling noncompliance -Hyperkalemia: Treatment with insulin, repeat levels, kayexalate -Unintentional weight loss: Consult dietitian -Sirs: Treat with Empiric IV Rocephin, urine culture and blood culture -Severe headaches: Stat CT head -Microcytic chronic anemia with high risk factors smoking: He needs a colonoscopy with the unintentional weight loss -DVT prophylaxis: Add subcutaneous heparin and follow CBC closely -Metabolic acidosis, and high anion gap: Treat the DKA -Acute renal failure due to vasomotor nephropathy: Treat with IV fluids and get a renal ultrasound UDS positive for cocaine, he smokes it. Counseling done His weight loss maybe related to his crack addiction, which he downplays. Continue IV insulin, repeat BMP Full code History Interval history: Patient seen and examined. Follow up on current diagnosis. Overnight uneventful. No cp, sob, n/v or severe headaches. Imaging, old records, testing, labs, nursing notes reviewed. Hospitalist Physical - Physical exam Narrative exam: GEN: Thin cachectic ill-appearing man in no respiratory distress wake alert oriented 3 HEENT: NCAT, PERRL, EOMI, OP CLEAR but dry NECK: SUPPLE, NO THYROMEGALY, NO JVD, NO LAD CVS: Regular tachycardia NORMAL S1S2 LUNGS/CHEST: CTA B, NORMAL CHEST EXPANSION B, GOOD AIR ENTRY B ABD: SOFT, nondistended diffuse tenderness, GBS, NO REBOUND OR GUARDING EXT/SKIN: NO SIGNIFICANT EDEMA OR RASH, mucous membranes dry MSK: FROM X 4 EXTREMITIES NEURO: CN 2-12 GROSSLY INTACT, NO FOCAL DEFICITS PSY: CALM - Constitutional Vitals: Temp Pulse Resp BP Pulse Ox 99 F 65 14 129/79 100 11/02/16 08:00 11/02/16 12:02 11/02/16 12:02 11/02/16 11:51 11/02/16 12:02 Results - Labs CBC & Chem 7: 11/02/16 04:02 11/02/16 04:02 Labs: Laboratory Last Values WBC 14.1 K/mm3 (4.5-11.0) H 11/02/16 04:02 RBC 5.67 M/mm3 (3.65-5.03) H 11/02/16 04:02 Hgb 9.1 gm/dl (11.8-15.2) L 11/02/16 04:02 Hct 32.5 % (35.5-45.6) L D 11/02/16 04:02 MCV 57 fl (84-94) L D 11/02/16 04:02 MCH 16 pg (28-32) L 11/02/16 04:02 MCHC 28 % (32-34) L 11/02/16 04:02 RDW 20.7 % (13.2-15.2) H 11/02/16 04:02 Plt Count 227 K/mm3 (140-440) 11/02/16 04:02 Add Manual Diff Complete 11/01/16 08:09 Total Counted 100 11/01/16 08:09 Seg Neutrophils % Implementation Specialist 11/01/16 08:09 Seg Neuts % (Manual) 91.0 % (40.0-70.0) H 11/01/16 08:09 Band Neutrophils % 0 % 11/01/16 08:09 Lymphocytes % (Manual) 7.0 % (13.4-35.0) L 11/01/16 08:09 Reactive Lymphs % (Man) 0 % 11/01/16 08:09 Monocytes % (Manual) 2.0 % (0.0-7.3) 11/01/16 08:09 Eosinophils % (Manual) 0 % (0.0-4.3) 11/01/16 08:09 Basophils % (Manual) 0 % (0.0-1.8) 11/01/16 08:09 Metamyelocytes % 0 % 11/01/16 08:09 Myelocytes % 0 % 11/01/16 08:09 Promyelocytes % 0 % 11/01/16 08:09 Blast Cells % 0 % 11/01/16 08:09 Nucleated RBC % Not Reportable 11/01/16 08:09 Seg Neutrophils # Man 16.6 K/mm3 (1.8-7.7) H 11/01/16 08:09 Band Neutrophils # 0.0 K/mm3 11/01/16 08:09 Lymphocytes # (Manual) 1.3 K/mm3 (1.2-5.4) 11/01/16 08:09 Abs React Lymphs (Man) 0.0 K/mm3 11/01/16 08:09 Monocytes # (Manual) 0.4 K/mm3 (0.0-0.8) 11/01/16 08:09 Eosinophils # (Manual) 0.0 K/mm3 (0.0-0.4) 11/01/16 08:09 Basophils # (Manual) 0.0 K/mm3 (0.0-0.1) 11/01/16 08:09 Metamyelocytes # 0.0 K/mm3 11/01/16 08:09 Myelocytes # 0.0 K/mm3 11/01/16 08:09 Promyelocytes # 0.0 K/mm3 11/01/16 08:09 Blast Cells # 0.0 K/mm3 11/01/16 08:09 WBC Morphology Not Reportable 11/01/16 08:09 Hypersegmented Neuts Not Reportable 11/01/16 08:09 Hyposegmented Neuts Not Reportable 11/01/16 08:09 Hypogranular Neuts Not Reportable 11/01/16 08:09 Smudge Cells Not Reportable 11/01/16 08:09 Toxic Granulation Not Reportable 11/01/16 08:09 Toxic Vacuolation Not Reportable 11/01/16 08:09 Dohle Bodies Not Reportable 11/01/16 08:09 Pelger-Huet Anomaly Not Reportable 11/01/16 08:09 Ashlyn Rods Not Reportable 11/01/16 08:09 Platelet Estimate Consistent w auto 11/01/16 08:09 Clumped Platelets Not Reportable 11/01/16 08:09 Plt Clumps, EDTA Not Reportable 11/01/16 08:09 Large Platelets Few 11/01/16 08:09 Giant Platelets Not Reportable 11/01/16 08:09 Platelet Satelliting Not Reportable 11/01/16 08:09 Plt Morphology Comment Not Reportable 11/01/16 08:09 RBC Morphology Not Reportable 11/01/16 08:09 Dimorphic RBCs Not Reportable 11/01/16 08:09 Polychromasia Not Reportable 11/01/16 08:09 Hypochromasia Not Reportable 11/01/16 08:09 Poikilocytosis Not Reportable 11/01/16 08:09 Anisocytosis 1+ 11/01/16 08:09 Microcytosis 2+ 11/01/16 08:09 Macrocytosis Not Reportable 11/01/16 08:09 Spherocytes Not Reportable 11/01/16 08:09 Pappenheimer Bodies Not Reportable 11/01/16 08:09 Sickle Cells Not Reportable 11/01/16 08:09 Target Cells Not Reportable 11/01/16 08:09 Tear Drop Cells Not Reportable 11/01/16 08:09 Ovalocytes Not Reportable 11/01/16 08:09 Helmet Cells Not Reportable 11/01/16 08:09 [place] Bodies Not Reportable 11/01/16 08:09 Marfa Rings Not Reportable 11/01/16 08:09 Tony Cells Not Reportable 11/01/16 08:09 Bite Cells Not Reportable 11/01/16 08:09 Crenated Cell Not Reportable 11/01/16 08:09 Elliptocytes Not Reportable 11/01/16 08:09 Acanthocytes (Spur) Not Reportable 11/01/16 08:09 Rouleaux Not Reportable 11/01/16 08:09 Hemoglobin C Crystals Not Reportable 11/01/16 08:09 Schistocytes Not Reportable 11/01/16 08:09 Malaria parasites Not Reportable 11/01/16 08:09 Gopi Bodies Not Reportable 11/01/16 08:09 Hem Pathologist Commnt No 11/01/16 08:09 VBG pH 7.001 (7.320-7.420) L* 11/01/16 08:09 Sodium 140 mmol/L (137-145) 11/02/16 04:02 Potassium 4.1 mmol/L (3.6-5.0) 11/02/16 04:02 Chloride 108.6 mmol/L (98-107) H 11/02/16 04:02 Carbon Dioxide 13 mmol/L (22-30) L 11/02/16 04:02 Anion Gap 23 mmol/L 11/02/16 04:02 BUN 12 mg/dL (9-20) 11/02/16 04:02 Creatinine 0.9 mg/dL (0.8-1.5) 11/02/16 04:02 Estimated GFR > 60 ml/min 11/02/16 04:02 BUN/Creatinine Ratio 13.33 % 11/02/16 04:02 Glucose 123 mg/dL (75-100) H 11/02/16 04:02 POC Glucose 104 (70-105) 11/02/16 06:56 Hemoglobin A1c 8.8 % (4-6) H 11/01/16 13:00 Ketones Quantitative Small (Negative) 11/01/16 08:09 Lactic Acid 2.10 mmol/L (0.7-2.0) H* 11/01/16 17:10 Calcium 8.9 mg/dL (8.4-10.2) 11/02/16 04:02 Phosphorus 4.90 mg/dL (2.5-4.5) H 11/01/16 13:00 Magnesium 2.20 mg/dL (1.7-2.3) 11/02/16 02:19 Total Bilirubin 0.30 mg/dL (0.1-1.2) 11/01/16 15:50 Direct Bilirubin < 0.2 mg/dL (0-0.2) 11/01/16 15:50 Indirect Bilirubin 0.1 mg/dL 11/01/16 15:50 AST 44 units/L (5-40) H 11/01/16 15:50 ALT 42 units/L (7-56) 11/01/16 15:50 Alkaline Phosphatase 121 units/L (35-129) 11/01/16 15:50 Total Protein 8.5 g/dL (6.3-8.2) H 11/01/16 15:50 Albumin 4.5 g/dL (3.9-5) 11/01/16 15:50 Albumin/Globulin Ratio 1.1 % 11/01/16 15:50 Lipase 873 units/L (13-60) H 11/01/16 15:50 Urine Color Straw (Yellow) 11/01/16 07:56 Urine Turbidity Clear (Clear) 11/01/16 07:56 Urine pH 5.0 (5.0-7.0) 11/01/16 07:56 Ur Specific Telephone 1.020 (1.003-1.030) 11/01/16 07:56 Urine Protein 30 mg/dl mg/dL (Negative) 11/01/16 07:56 Urine Glucose (UA) >=500 mg/dL (Negative) 11/01/16 07:56 Urine Ketones 80 mg/dL (Negative) 11/01/16 07:56 Urine Blood Sm (Negative) 11/01/16 07:56 Urine Nitrite Neg (Negative) 11/01/16 07:56 Urine Bilirubin Neg (Negative) 11/01/16 07:56 Urine Urobilinogen < 2.0 mg/dL (<2.0) 11/01/16 07:56 Ur Leukocyte Esterase Neg (Negative) 11/01/16 07:56 Urine WBC (Auto) < 1.0 /HPF (0.0-6.0) 11/01/16 07:56 Urine RBC (Auto) 3.0 /HPF (0.0-6.0) 11/01/16 07:56 U Epithel Cells (Auto) < 1.0 /HPF (0-13.0) 11/01/16 07:56 Urine Mucus Few /HPF 11/01/16 07:56 Urine Creatinine 24.5 mg/dL (0.1-20.0) H 11/01/16 12:20 Urine Microalbumin 8.8 mg/dL (0.1-34.0) 11/01/16 12:20 Microalb/Creat Ratio 359.1 ug/mg 11/01/16 12:20 Urine Opiates Screen Presumptive negative 11/01/16 12:20 Urine Methadone Screen Presumptive negative 11/01/16 12:20 Ur Barbiturates Screen Presumptive negative 11/01/16 12:20 Ur Phencyclidine Scrn Presumptive negative 11/01/16 12:20 Ur Amphetamines Screen Presumptive negative 11/01/16 12:20 U Benzodiazepines Scrn Presumptive negative 11/01/16 12:20 Urine Cocaine Screen Presumptive positive 11/01/16 12:20 U Marijuana (THC) Screen Presumptive negative 11/01/16 12:20 Drugs of Abuse Note Disclamer 11/01/16 12:20
[2016-11-02 13:08] LABS: Anion Gap 20 mmol/L; Blood Urea Nitrogen 12 mg/dL (9-20); Calcium 8.5 mg/dL (8.4-10.2); Carbon Dioxide 16 mmol/L (22-30); Chloride 106.6 mmol/L (98-107); Glucose 143 mg/dL (75-100); Potassium 3.8 mmol/L (3.6-5.0); Sodium 139 mmol/L (137-145)
[2016-11-02] MEDS: NovoLIN R 100 UNITS in NACL 0.9% 99 ML IV SCH (18:18)
[2016-11-02 19:07] LABS: Anion Gap 21 mmol/L; BUN/Creatinine Ratio 13.33; Blood Urea Nitrogen 12 mg/dL (9-20); Calcium 8.8 mg/dL (8.4-10.2); Carbon Dioxide 16 mmol/L (22-30); Chloride 105.8 mmol/L (98-107); Glucose 171 mg/dL (75-100); Potassium 3.3 mmol/L (3.6-5.0); Sodium 139 mmol/L (137-145)
[2016-11-02] MEDS ORDERED: ATIVAN IV PRN ×2 (20:30)
[2016-11-02] MEDS: ATIVAN IV PRN (20:41)
[2016-11-02] MEDS: D5NS 1,000 ML IV SCH (20:42)
[2016-11-03] MEDS: HEPARIN SUB-Q SCH ×2 (01:23→12:40)
[2016-11-03 04:44] LABS: Mean Corpuscular HGB Conc 29 % (32-34); Platelet Count 157 K/mm3 (140-440); Red Blood Count 5.13 M/mm3 (3.65-5.03); White Blood Count 6.2 K/mm3 (4.5-11.0)
[2016-11-03 04:48] LABS: Hematocrit 29.6 % (35.5-45.6); Hemoglobin 8.5 gm/dl (11.8-15.2); Mean Corpuscular Hemoglobin 17 pg (28-32); Mean Corpuscular Volume 58 fl (84-94); Red Cell Distribution Width 20.7 % (13.2-15.2)
[2016-11-03 05:02] LABS: Anion Gap 17 mmol/L; BUN/Creatinine Ratio 15.71; Blood Urea Nitrogen 11 mg/dL (9-20); Calcium 8.6 mg/dL (8.4-10.2); Carbon Dioxide 19 mmol/L (22-30); Chloride 108.5 mmol/L (98-107); Glucose 170 mg/dL (75-100); Potassium 3.4 mmol/L (3.6-5.0); Sodium 141 mmol/L (137-145)
--- NOTE | 2016-11-03 08:36 | Progress Note ---
Assessment and Plan Volume depletion DKA N/V Polysubstance abuse- Meth,Cocaine Tobacco.See Tox panels on EMR DOC Hyperkalemia.Improved, likely acidosis related Chronic nicotine dependence Metabolic enceph.Improving Diabetic neuropathy- c/o chronic lower extremities parestesia,discomfort , pain Rec Continue BS monitoring NPH Gentle fluids K+ as needed Once off insulin drip and AG,BS adequate, will consider transfer out Will continue to monitor while in ICU, then sign off Discussed with pt, family at the bedside CCT 31 min Subjective Date of service: 11/03/16 Interval history: No events overnight.No cough or expectoration.No fever reported Objective Vital Signs - 12hr 11/02/16 11/02/16 11/02/16 20:41 20:51 21:00 Temperature Pulse Rate 77 80 Pulse Rate [ From Monitor] Respiratory 22 11 L 22 Rate Respiratory Rate [denies] Blood Pressure 128/83 128/83 O2 Sat by Pulse 100 100 99 Oximetry 11/02/16 11/02/16 11/02/16 21:01 21:11 21:21 Temperature Pulse Rate 97 H 76 79 Pulse Rate [ From Monitor] Respiratory Rate Respiratory Rate [denies] Blood Pressure 131/81 131/81 131/81 O2 Sat by Pulse 100 100 100 Oximetry 11/02/16 11/02/16 11/02/16 21:30 21:41 21:51 Temperature Pulse Rate 68 71 74 Pulse Rate [ From Monitor] Respiratory Rate Respiratory Rate [denies] Blood Pressure 110/62 110/62 110/62 O2 Sat by Pulse 100 100 95 Oximetry 11/02/16 11/02/16 11/02/16 21:55 21:58 22:00 Temperature Pulse Rate 74 74 Pulse Rate [ 70 From Monitor] Respiratory 18 20 Rate Respiratory 20 Rate [denies] Blood Pressure 123/78 O2 Sat by Pulse 99 99 Oximetry 11/02/16 11/02/16 11/02/16 22:11 22:21 22:30 Temperature Pulse Rate 68 70 68 Pulse Rate [ From Monitor] Respiratory Rate Respiratory Rate [denies] Blood Pressure 123/78 123/78 105/64 O2 Sat by Pulse 100 99 99 Oximetry 11/02/16 11/02/16 11/02/16 22:41 22:51 23:00 Temperature Pulse Rate 63 65 65 Pulse Rate [ From Monitor] Respiratory 20 Rate Respiratory Rate [denies] Blood Pressure 105/64 105/64 110/71 O2 Sat by Pulse 99 99 99 Oximetry 11/02/16 11/02/16 11/02/16 23:11 23:21 23:30 Temperature Pulse Rate 63 64 65 Pulse Rate [ From Monitor] Respiratory Rate Respiratory Rate [denies] Blood Pressure 110/71 110/71 113/71 O2 Sat by Pulse 100 100 100 Oximetry 11/02/16 11/02/16 11/02/16 23:41 23:48 23:51 Temperature 97.6 F Pulse Rate 62 61 Pulse Rate [ From Monitor] Respiratory 12 Rate Respiratory Rate [denies] Blood Pressure 113/71 113/71 O2 Sat by Pulse 100 100 Oximetry 11/02/16 11/03/16 11/03/16 23:59 00:00 00:11 Temperature Pulse Rate 60 62 60 Pulse Rate [ 60 From Monitor] Respiratory 12 12 12 Rate Respiratory Rate [denies] Blood Pressure 113/71 103/70 103/70 O2 Sat by Pulse 100 100 100 Oximetry 11/03/16 11/03/16 11/03/16 00:21 00:30 00:41 Temperature Pulse Rate 60 60 59 L Pulse Rate [ From Monitor] Respiratory 13 13 12 Rate Respiratory Rate [denies] Blood Pressure 103/70 102/65 102/65 O2 Sat by Pulse 100 100 100 Oximetry 11/03/16 11/03/16 11/03/16 00:51 01:00 01:11 Temperature Pulse Rate 62 62 69 Pulse Rate [ From Monitor] Respiratory 12 11 L 10 L Rate Respiratory Rate [denies] Blood Pressure 102/65 115/75 115/75 O2 Sat by Pulse 100 100 100 Oximetry 11/03/16 11/03/16 11/03/16 01:21 01:30 01:41 Temperature Pulse Rate 66 65 64 Pulse Rate [ From Monitor] Respiratory 15 14 12 Rate Respiratory Rate [denies] Blood Pressure 115/75 104/57 104/57 O2 Sat by Pulse 100 100 100 Oximetry 11/03/16 11/03/16 11/03/16 01:51 02:00 02:11 Temperature Pulse Rate 63 62 62 Pulse Rate [ From Monitor] Respiratory 13 12 13 Rate Respiratory Rate [denies] Blood Pressure 104/57 99/60 99/60 O2 Sat by Pulse 100 100 100 Oximetry 11/03/16 11/03/16 11/03/16 02:20 02:25 02:31 Temperature Pulse Rate 64 61 61 Pulse Rate [ From Monitor] Respiratory 11 L 12 Rate Respiratory Rate [denies] Blood Pressure 99/60 O2 Sat by Pulse 100 100 Oximetry 11/03/16 11/03/16 11/03/16 02:41 02:51 03:01 Temperature Pulse Rate 61 60 62 Pulse Rate [ From Monitor] Respiratory 12 12 12 Rate Respiratory Rate [denies] Blood Pressure 99/60 99/60 99/60 O2 Sat by Pulse 100 100 100 Oximetry 11/03/16 11/03/16 11/03/16 03:11 03:21 03:31 Temperature Pulse Rate 63 74 68 Pulse Rate [ From Monitor] Respiratory 15 17 13 Rate Respiratory Rate [denies] Blood Pressure 99/60 99/60 106/70 O2 Sat by Pulse 100 100 100 Oximetry 11/03/16 11/03/16 11/03/16 03:41 03:51 04:00 Temperature Pulse Rate 60 60 60 Pulse Rate [ From Monitor] Respiratory 13 13 13 Rate Respiratory Rate [denies] Blood Pressure 106/70 106/70 103/62 O2 Sat by Pulse 100 100 100 Oximetry 11/03/16 11/03/16 11/03/16 04:05 04:11 04:21 Temperature Pulse Rate 64 61 Pulse Rate [ From Monitor] Respiratory 15 13 Rate Respiratory 20 Rate [denies] Blood Pressure 106/70 106/70 O2 Sat by Pulse 100 100 100 Oximetry 11/03/16 11/03/16 11/03/16 04:23 04:30 04:41 Temperature 97.4 F L Pulse Rate 64 62 Pulse Rate [ From Monitor] Respiratory 15 15 Rate Respiratory Rate [denies] Blood Pressure 105/64 105/64 O2 Sat by Pulse 100 100 Oximetry 11/03/16 11/03/16 11/03/16 04:51 05:00 05:11 Temperature Pulse Rate 65 63 62 Pulse Rate [ From Monitor] Respiratory 15 15 15 Rate Respiratory Rate [denies] Blood Pressure 103/62 89/47 89/47 O2 Sat by Pulse 100 100 100 Oximetry 11/03/16 11/03/16 11/03/16 05:21 05:30 05:41 Temperature Pulse Rate 59 L 57 L 58 L Pulse Rate [ From Monitor] Respiratory 13 14 15 Rate Respiratory Rate [denies] Blood Pressure 105/64 98/54 98/54 O2 Sat by Pulse 100 100 100 Oximetry 11/03/16 11/03/16 11/03/16 05:51 06:00 06:11 Temperature Pulse Rate 58 L 57 L 57 L Pulse Rate [ From Monitor] Respiratory 15 14 16 Rate Respiratory Rate [denies] Blood Pressure 98/54 106/58 106/58 O2 Sat by Pulse 100 100 100 Oximetry 11/03/16 11/03/16 11/03/16 06:21 06:30 06:41 Temperature Pulse Rate 57 L 61 62 Pulse Rate [ From Monitor] Respiratory 15 10 L 17 Rate Respiratory Rate [denies] Blood Pressure 106/58 99/60 99/60 O2 Sat by Pulse 100 100 100 Oximetry 11/03/16 11/03/16 11/03/16 06:51 07:00 07:11 Temperature Pulse Rate 72 59 L 58 L Pulse Rate [ From Monitor] Respiratory 12 13 15 Rate Respiratory Rate [denies] Blood Pressure 99/60 102/60 102/60 O2 Sat by Pulse 100 100 100 Oximetry 11/03/16 11/03/16 11/03/16 07:21 07:30 07:41 Temperature Pulse Rate 63 68 61 Pulse Rate [ From Monitor] Respiratory 15 16 14 Rate Respiratory Rate [denies] Blood Pressure 102/60 101/61 101/61 O2 Sat by Pulse 100 100 100 Oximetry 11/03/16 11/03/16 07:51 08:00 Temperature Pulse Rate 62 62 Pulse Rate [ 63 From Monitor] Respiratory 7 L 13 Rate Respiratory Rate [denies] Blood Pressure 101/61 94/55 O2 Sat by Pulse 100 100 Oximetry Constitutional: no acute distress Eyes: non-icteric ENT: oropharynx moist Neck: supple Effort: normal Ascultation: Bilateral: clear Cardiovascular: regular rate and rhythm Gastrointestinal: normoactive bowel sounds, soft, non-tender Integumentary: normal Extremities: no cyanosis, no edema, pink and warm Neurologic: normal mental status, non-focal exam Psychiatric: mood appropriate, affect normal CBC and BMP: 11/03/16 04:12 11/03/16 04:12 Abnormal lab findings: Abnormal Labs 11/01/16 11/01/16 11/01/16 10:56 11:59 12:20 WBC RBC Hgb Hct MCV MCH MCHC RDW Potassium Chloride Carbon Dioxide BUN Creatinine Glucose POC Glucose 388 H 310 H Hemoglobin A1c Lactic Acid Phosphorus Magnesium AST Total Protein Lipase Urine Creatinine 24.5 H 11/01/16 11/01/16 11/01/16 13:00 13:00 13:00 WBC RBC Hgb Hct MCV MCH MCHC RDW Potassium 5.3 H Chloride Carbon Dioxide < 2.0 L* BUN 23 H Creatinine Glucose 244 H POC Glucose Hemoglobin A1c 8.8 H Lactic Acid Phosphorus 4.90 H Magnesium 2.50 H AST Total Protein Lipase Urine Creatinine 11/01/16 11/01/16 11/01/16 13:05 14:03 15:20 WBC RBC Hgb Hct MCV MCH MCHC RDW Potassium Chloride Carbon Dioxide BUN Creatinine Glucose POC Glucose 257 H 272 H 177 H Hemoglobin A1c Lactic Acid Phosphorus Magnesium AST Total Protein Lipase Urine Creatinine 11/01/16 11/01/16 11/01/16 15:50 15:50 15:56 WBC RBC Hgb Hct MCV MCH MCHC RDW Potassium 5.4 H Chloride Carbon Dioxide 4 L* BUN 21 H Creatinine Glucose 152 H POC Glucose 157 H Hemoglobin A1c Lactic Acid Phosphorus Magnesium AST 44 H Total Protein 8.5 H Lipase 873 H Urine Creatinine 11/01/16 11/01/16 11/01/16 16:58 17:10 17:10 WBC RBC Hgb Hct MCV MCH MCHC RDW Potassium 5.3 H Chloride Carbon Dioxide 7 L* BUN Creatinine Glucose 132 H POC Glucose 131 H Hemoglobin A1c Lactic Acid 2.10 H* Phosphorus Magnesium AST Total Protein Lipase Urine Creatinine 11/01/16 11/01/16 11/01/16 18:07 19:10 19:50 WBC RBC Hgb Hct MCV MCH MCHC RDW Potassium Chloride Carbon Dioxide BUN Creatinine Glucose POC Glucose 153 H 140 H 142 H Hemoglobin A1c Lactic Acid Phosphorus Magnesium AST Total Protein Lipase Urine Creatinine 11/01/16 11/01/16 11/01/16 19:58 20:49 22:12 WBC RBC Hgb Hct MCV MCH MCHC RDW Potassium 5.5 H Chloride Carbon Dioxide 7 L* BUN Creatinine Glucose 129 H POC Glucose 145 H 146 H Hemoglobin A1c Lactic Acid Phosphorus Magnesium AST Total Protein Lipase Urine Creatinine 11/01/16 11/01/16 11/02/16 22:54 23:55 01:30 WBC RBC Hgb Hct MCV MCH MCHC RDW Potassium Chloride Carbon Dioxide BUN Creatinine Glucose POC Glucose 148 H 162 H 137 H Hemoglobin A1c Lactic Acid Phosphorus Magnesium AST Total Protein Lipase Urine Creatinine 11/02/16 11/02/16 11/02/16 02:11 02:19 03:14 WBC RBC Hgb Hct MCV MCH MCHC RDW Potassium Chloride Carbon Dioxide 11 L BUN Creatinine Glucose 125 H POC Glucose 135 H 132 H Hemoglobin A1c Lactic Acid Phosphorus Magnesium AST Total Protein Lipase Urine Creatinine 11/02/16 11/02/16 11/02/16 04:02 04:02 04:40 WBC 14.1 H RBC 5.67 H Hgb 9.1 L Hct 32.5 L D MCV 57 L D MCH 16 L MCHC 28 L RDW 20.7 H Potassium Chloride 108.6 H Carbon Dioxide 13 L BUN Creatinine Glucose 123 H POC Glucose 137 H Hemoglobin A1c Lactic Acid Phosphorus Magnesium AST Total Protein Lipase Urine Creatinine 11/02/16 11/02/16 11/02/16 04:50 05:20 09:17 WBC RBC Hgb Hct MCV MCH MCHC RDW Potassium Chloride Carbon Dioxide BUN Creatinine Glucose POC Glucose 127 H 121 H 182 H Hemoglobin A1c Lactic Acid Phosphorus Magnesium AST Total Protein Lipase Urine Creatinine 11/02/16 11/02/16 11/02/16 10:16 11:23 12:18 WBC RBC Hgb Hct MCV MCH MCHC RDW Potassium Chloride Carbon Dioxide BUN Creatinine Glucose POC Glucose 205 H 158 H 142 H Hemoglobin A1c Lactic Acid Phosphorus Magnesium AST Total Protein Lipase Urine Creatinine 11/02/16 11/02/16 11/02/16 12:21 13:38 14:43 WBC RBC Hgb Hct MCV MCH MCHC RDW Potassium Chloride Carbon Dioxide 16 L BUN Creatinine Glucose 143 H POC Glucose 145 H 162 H Hemoglobin A1c Lactic Acid Phosphorus Magnesium AST Total Protein Lipase Urine Creatinine 11/02/16 11/02/16 11/02/16 15:17 16:33 17:52 WBC RBC Hgb Hct MCV MCH MCHC RDW Potassium Chloride Carbon Dioxide BUN Creatinine Glucose POC Glucose 165 H 155 H 188 H Hemoglobin A1c Lactic Acid Phosphorus Magnesium AST Total Protein Lipase Urine Creatinine 11/02/16 11/02/16 11/02/16 17:55 18:41 19:09 WBC RBC Hgb Hct MCV MCH MCHC RDW Potassium 3.3 L Chloride Carbon Dioxide 16 L BUN Creatinine Glucose 171 H POC Glucose 178 H 177 H Hemoglobin A1c Lactic Acid Phosphorus Magnesium AST Total Protein Lipase Urine Creatinine 11/02/16 11/02/16 11/02/16 20:20 21:52 23:31 WBC RBC Hgb Hct MCV MCH MCHC RDW Potassium Chloride Carbon Dioxide BUN Creatinine Glucose POC Glucose 141 H 178 H 208 H Hemoglobin A1c Lactic Acid Phosphorus Magnesium AST Total Protein Lipase Urine Creatinine 11/03/16 11/03/16 11/03/16 01:16 02:25 03:31 WBC RBC Hgb Hct MCV MCH MCHC RDW Potassium Chloride Carbon Dioxide BUN Creatinine Glucose POC Glucose 187 H 204 H 157 H Hemoglobin A1c Lactic Acid Phosphorus Magnesium AST Total Protein Lipase Urine Creatinine 11/03/16 11/03/16 11/03/16 04:12 04:12 05:24 WBC RBC 5.13 H Hgb 8.5 L Hct 29.6 L MCV 58 L MCH 17 L MCHC 29 L RDW 20.7 H Potassium 3.4 L Chloride 108.5 H Carbon Dioxide 19 L BUN Creatinine 0.7 L Glucose 170 H POC Glucose 189 H Hemoglobin A1c Lactic Acid Phosphorus Magnesium AST Total Protein Lipase Urine Creatinine 11/03/16 06:31 WBC RBC Hgb Hct MCV MCH MCHC RDW Potassium Chloride Carbon Dioxide BUN Creatinine Glucose POC Glucose 188 H Hemoglobin A1c Lactic Acid Phosphorus Magnesium AST Total Protein Lipase Urine Creatinine
[2016-11-03] MEDS: ROCEPHIN/NS 1 GM/50 ML 1 GM/50 ML BAG IV SCH (09:25)
[2016-11-03] MEDS ORDERED: K-DUR PO ONE (11:00)
[2016-11-03] MEDS: D5NS 1,000 ML IV SCH (11:18)
[2016-11-03] MEDS ORDERED: D50W (25GM) IV PRN (11:21)
--- NOTE | 2016-11-03 12:35 | Progress Note ---
Assessment and Plan Assessment and plan: DKA. Resolved. Anion gap is closed. The patient will be transitioned to long- acting insulin and insulin drip discontinued. Patient will be transferred to the floor. Hyperkalemia. Resolved. SIRS. Continue empiric antibiotics. Follow cultures. Microcytic chronic anemia. Patient does have high risk factors and unintentional weight loss. Patient will need further follow-up colonoscopy as an outpatient. Acute renal failure. Resolved. Etiology secondary to vasomotor nephropathy. Substance abuse. Patient has been counseled. Maintain [facility] protocol History Interval history: No new issues overnight. Hospitalist Physical - Constitutional Vitals: Temp Pulse Resp BP Pulse Ox 97.6 F 71 15 119/75 100 11/03/16 12:00 11/03/16 11:57 11/03/16 11:57 11/03/16 11:51 11/03/16 11:51 General appearance: Present: no acute distress, well-nourished - EENT Eyes: Present: PERRL, EOM intact ENT: hearing intact, clear oral mucosa, dentition normal - Neck Neck: Present: supple, normal ROM - Respiratory Respiratory effort: normal Respiratory: bilateral: CTA - Cardiovascular Rhythm: regular Heart Sounds: Present: S1 & S2. Absent: gallop, rub - Extremities Extremities: no ischemia, No edema, Full ROM - Abdominal General gastrointestinal: soft, non-tender, non-distended, normal bowel sounds - Integumentary Integumentary: Present: clear, warm, dry - Neurologic Neurologic: CNII-XII intact, moves all extremities Results - Labs CBC & Chem 7: 11/03/16 04:12 11/03/16 04:12 Labs: Laboratory Last Values WBC 6.2 K/mm3 (4.5-11.0) 11/03/16 04:12 RBC 5.13 M/mm3 (3.65-5.03) H 11/03/16 04:12 Hgb 8.5 gm/dl (11.8-15.2) L 11/03/16 04:12 Hct 29.6 % (35.5-45.6) L 11/03/16 04:12 MCV 58 fl (84-94) L 11/03/16 04:12 MCH 17 pg (28-32) L 11/03/16 04:12 MCHC 29 % (32-34) L 11/03/16 04:12 RDW 20.7 % (13.2-15.2) H 11/03/16 04:12 Plt Count 157 K/mm3 (140-440) 11/03/16 04:12 Add Manual Diff Complete 11/01/16 08:09 Total Counted 100 11/01/16 08:09 Seg Neutrophils % [employer]mat Tanker [employer] 11/01/16 08:09 Seg Neuts % (Manual) 91.0 % (40.0-70.0) H 11/01/16 08:09 Band Neutrophils % 0 % 11/01/16 08:09 Lymphocytes % (Manual) 7.0 % (13.4-35.0) L 11/01/16 08:09 Reactive Lymphs % (Man) 0 % 11/01/16 08:09 Monocytes % (Manual) 2.0 % (0.0-7.3) 11/01/16 08:09 Eosinophils % (Manual) 0 % (0.0-4.3) 11/01/16 08:09 Basophils % (Manual) 0 % (0.0-1.8) 11/01/16 08:09 Metamyelocytes % 0 % 11/01/16 08:09 Myelocytes % 0 % 11/01/16 08:09 Promyelocytes % 0 % 11/01/16 08:09 Blast Cells % 0 % 11/01/16 08:09 Nucleated RBC % Not Reportable 11/01/16 08:09 Seg Neutrophils # Man 16.6 K/mm3 (1.8-7.7) H 11/01/16 08:09 Band Neutrophils # 0.0 K/mm3 11/01/16 08:09 Lymphocytes # (Manual) 1.3 K/mm3 (1.2-5.4) 11/01/16 08:09 Abs React Lymphs (Man) 0.0 K/mm3 11/01/16 08:09 Monocytes # (Manual) 0.4 K/mm3 (0.0-0.8) 11/01/16 08:09 Eosinophils # (Manual) 0.0 K/mm3 (0.0-0.4) 11/01/16 08:09 Basophils # (Manual) 0.0 K/mm3 (0.0-0.1) 11/01/16 08:09 Metamyelocytes # 0.0 K/mm3 11/01/16 08:09 Myelocytes # 0.0 K/mm3 11/01/16 08:09 Promyelocytes # 0.0 K/mm3 11/01/16 08:09 Blast Cells # 0.0 K/mm3 11/01/16 08:09 WBC Morphology Not Reportable 11/01/16 08:09 Hypersegmented Neuts Not Reportable 11/01/16 08:09 Hyposegmented Neuts Not Reportable 11/01/16 08:09 Hypogranular Neuts Not Reportable 11/01/16 08:09 Smudge Cells Not Reportable 11/01/16 08:09 Toxic Granulation Not Reportable 11/01/16 08:09 Toxic Vacuolation Not Reportable 11/01/16 08:09 Dohle Bodies Not Reportable 11/01/16 08:09 Pelger-Huet Anomaly Not Reportable 11/01/16 08:09 Ashlyn Rods Not Reportable 11/01/16 08:09 Platelet Estimate Consistent w auto 11/01/16 08:09 Clumped Platelets Not Reportable 11/01/16 08:09 Plt Clumps, EDTA Not Reportable 11/01/16 08:09 Large Platelets Few 11/01/16 08:09 Giant Platelets Not Reportable 11/01/16 08:09 Platelet Satelliting Not Reportable 11/01/16 08:09 Plt Morphology Comment Not Reportable 11/01/16 08:09 RBC Morphology Not Reportable 11/01/16 08:09 Dimorphic RBCs Not Reportable 11/01/16 08:09 Polychromasia Not Reportable 11/01/16 08:09 Hypochromasia Not Reportable 11/01/16 08:09 Poikilocytosis Not Reportable 11/01/16 08:09 Anisocytosis 1+ 11/01/16 08:09 Microcytosis 2+ 11/01/16 08:09 Macrocytosis Not Reportable 11/01/16 08:09 Spherocytes Not Reportable 11/01/16 08:09 Pappenheimer Bodies Not Reportable 11/01/16 08:09 Sickle Cells Not Reportable 11/01/16 08:09 Target Cells Not Reportable 11/01/16 08:09 Tear Drop Cells Not Reportable 11/01/16 08:09 Ovalocytes Not Reportable 11/01/16 08:09 Helmet Cells Not Reportable 11/01/16 08:09 Mendoza-Green Level Bodies Not Reportable 11/01/16 08:09 Bett[place]f Rings Not Reportable 11/01/16 08:09 Bearden Cells Not Reportable 11/01/16 08:09 Bite Cells Not Reportable 11/01/16 08:09 Crenated Cell Not Reportable 11/01/16 08:09 Elliptocytes Not Reportable 11/01/16 08:09 Acanthocytes (Spur) Not Reportable 11/01/16 08:09 Rouleaux Not Reportable 11/01/16 08:09 Hemoglobin C Crystals Not Reportable 11/01/16 08:09 Schistocytes Not Reportable 11/01/16 08:09 Malaria parasites Not Reportable 11/01/16 08:09 Gopi Bodies Not Reportable 11/01/16 08:09 Hem Pathologist Commnt No 11/01/16 08:09 VBG pH 7.001 (7.320-7.420) L* 11/01/16 08:09 Sodium 141 mmol/L (137-145) 11/03/16 04:12 Potassium 3.4 mmol/L (3.6-5.0) L 11/03/16 04:12 Chloride 108.5 mmol/L (98-107) H 11/03/16 04:12 Carbon Dioxide 19 mmol/L (22-30) L 11/03/16 04:12 Anion Gap 17 mmol/L 11/03/16 04:12 BUN 11 mg/dL (9-20) 11/03/16 04:12 Creatinine 0.7 mg/dL (0.8-1.5) L 11/03/16 04:12 Estimated GFR > 60 ml/min 11/03/16 04:12 BUN/Creatinine Ratio 15.71 % 11/03/16 04:12 Glucose 170 mg/dL (75-100) H 11/03/16 04:12 POC Glucose 188 (70-105) H 11/03/16 06:31 Hemoglobin A1c 8.8 % (4-6) H 11/01/16 13:00 Ketones Quantitative Small (Negative) 11/01/16 08:09 Lactic Acid 2.10 mmol/L (0.7-2.0) H* 11/01/16 17:10 Calcium 8.6 mg/dL (8.4-10.2) 11/03/16 04:12 Phosphorus 4.90 mg/dL (2.5-4.5) H 11/01/16 13:00 Magnesium 2.20 mg/dL (1.7-2.3) 11/02/16 02:19 Total Bilirubin 0.30 mg/dL (0.1-1.2) 11/01/16 15:50 Direct Bilirubin < 0.2 mg/dL (0-0.2) 11/01/16 15:50 Indirect Bilirubin 0.1 mg/dL 11/01/16 15:50 AST 44 units/L (5-40) H 11/01/16 15:50 ALT 42 units/L (7-56) 11/01/16 15:50 Alkaline Phosphatase 121 units/L (35-129) 11/01/16 15:50 Total Protein 8.5 g/dL (6.3-8.2) H 11/01/16 15:50 Albumin 4.5 g/dL (3.9-5) 11/01/16 15:50 Albumin/Globulin Ratio 1.1 % 11/01/16 15:50 Lipase 873 units/L (13-60) H 11/01/16 15:50 Urine Color Straw (Yellow) 11/01/16 07:56 Urine Turbidity Clear (Clear) 11/01/16 07:56 Urine pH 5.0 (5.0-7.0) 11/01/16 07:56 Ur Specific [place] 1.020 (1.003-1.030) 11/01/16 07:56 Urine Protein 30 mg/dl mg/dL (Negative) 11/01/16 07:56 Urine Glucose (UA) >=500 mg/dL (Negative) 11/01/16 07:56 Urine Ketones 80 mg/dL (Negative) 11/01/16 07:56 Urine Blood Sm (Negative) 11/01/16 07:56 Urine Nitrite Neg (Negative) 11/01/16 07:56 Urine Bilirubin Neg (Negative) 11/01/16 07:56 Urine Urobilinogen < 2.0 mg/dL (<2.0) 11/01/16 07:56 Ur Leukocyte Esterase Neg (Negative) 11/01/16 07:56 Urine WBC (Auto) < 1.0 /HPF (0.0-6.0) 11/01/16 07:56 Urine RBC (Auto) 3.0 /HPF (0.0-6.0) 11/01/16 07:56 U Epithel Cells (Auto) < 1.0 /HPF (0-13.0) 11/01/16 07:56 Urine Mucus Few /HPF 11/01/16 07:56 Urine Creatinine 24.5 mg/dL (0.1-20.0) H 11/01/16 12:20 Urine Microalbumin 8.8 mg/dL (0.1-34.0) 11/01/16 12:20 Microalb/Creat Ratio 359.1 ug/mg 11/01/16 12:20 Urine Opiates Screen Presumptive negative 11/01/16 12:20 Urine Methadone Screen Presumptive negative 11/01/16 12:20 Ur Barbiturates Screen Presumptive negative 11/01/16 12:20 Ur Phencyclidine Scrn Presumptive negative 11/01/16 12:20 Ur Amphetamines Screen Presumptive negative 11/01/16 12:20 U Benzodiazepines Scrn Presumptive negative 11/01/16 12:20 Urine Cocaine Screen Presumptive positive 11/01/16 12:20 U Marijuana (THC) Screen Presumptive negative 11/01/16 12:20 Drugs of Abuse Note Disclamer 11/01/16 12:20
[2016-11-03] MEDS: HABITROL TD SCH (18:12)
[2016-11-03] MEDS: ATIVAN IV PRN ×2 (18:12→21:47)
[2016-11-04] MEDS: MORPHINE IV PRN ×3 (00:22→14:18)
[2016-11-04] MEDS: HEPARIN SUB-Q SCH ×2 (00:23→13:53)
[2016-11-04 05:43] LABS: Basophils % (Auto) 0.2 % (0.0-1.8); Eosinophils % (Auto) 0.1 % (0.0-4.3); Hematocrit 28.4 % (35.5-45.6); Hemoglobin 8.4 gm/dl (11.8-15.2); Mean Corpuscular HGB Conc 30 % (32-34); Mean Corpuscular Hemoglobin 17 pg (28-32); Mean Corpuscular Volume 57 fl (84-94); Platelet Count 148 K/mm3 (140-440); Red Blood Count 5.02 M/mm3 (3.65-5.03); Red Cell Distribution Width 20.9 % (13.2-15.2); White Blood Count 5.9 K/mm3 (4.5-11.0)
[2016-11-04 05:50] LABS: Anion Gap 16 mmol/L; BUN/Creatinine Ratio 11.66; Blood Urea Nitrogen 7 mg/dL (9-20); Calcium 8.3 mg/dL (8.4-10.2); Carbon Dioxide 21 mmol/L (22-30); Chloride 102.4 mmol/L (98-107); Glucose 232 mg/dL (75-100); Potassium 3.7 mmol/L (3.6-5.0); Sodium 136 mmol/L (137-145)
--- NOTE | 2016-11-04 07:42 | Discharge Summary ---
Providers - Providers Date of Admission: 11/01/16 09:19 Date of discharge: 11/04/16 Attending physician: ABRAM MARTIN 11/01/16 09:51 Consult to Physician [CONS] Routine Consulting Provider: ABIGAIL DUNN Reason For Exam: CCU admit Place consult to:: Veto Notified:: N Primary care physician: [employer]USB[employer] TECHNICIAN Hospitalization Reason for admission: DKA Condition: Stable Hospital course: This is a 45-year-old male with significant past medical history type 2 diabetes mellitus who was admitted for DKA and acute renal failure. Patient reportedly was out of his insulin for 3 days and developed nausea vomiting as well as generalized weakness and epigastric abdominal pain. Patient reports poor by mouth intake. Patient also reported to have altered mentation and some shortness of breath. Patient was treated with IV insulin drip and transition back to his long-acting insulin 70/30 twice a day after anion gap closed in DKA resolved. With regards to the acute renal failure, patient was noted to have a creatinine 1.5 on admission. Etiology is felt to be secondary to vasomotor nephropathy. Acute renal failure resolved with IV fluid hydration. Renal ultrasound was negative for obstruction or hydronephrosis. Patient had slow but significant improvement throughout hospitalization. Patient appears to be back at baseline. Dedicated discharge time 35 minutes. Disposition: - TO HOME OR SELFCARE Time spent for discharge: 35 - Discharge Diagnoses (1) ARF (acute renal failure) Status: Acute Qualifiers: Acute renal failure type: A (2) Vasomotor nephropathy Status: Acute (3) DKA, type 1 Status: Acute Qualifiers: Diabetes mellitus complication detail: D (4) DKA (diabetic ketoacidoses) Status: Acute Qualifiers: Diabetes mellitus type: D Diabetes mellitus complication detail: D Core Measure Documentation - Palliative Care Palliative Care/ Comfort Measures: Not Applicable - Core Measures Any of the following diagnoses?: none Exam - Constitutional Vitals: Temp Pulse Resp BP Pulse Ox 71 F L 84 16 128/71 100 11/03/16 23:00 11/03/16 17:30 11/04/16 00:52 11/03/16 23:00 11/03/16 23:00 General appearance: Present: no acute distress, well-nourished - EENT Eyes: Present: PERRL ENT: hearing intact, clear oral mucosa - Neck Neck: Present: supple, normal ROM - Respiratory Respiratory effort: normal Respiratory: bilateral: CTA - Cardiovascular Heart Sounds: Present: S1 & S2. Absent: rub, click - Extremities Extremities: pulses symmetrical, No edema Peripheral Pulses: within normal limits - Abdominal General gastrointestinal: Present: soft, non-tender, non-distended, normal bowel sounds Male genitourinary: Present: normal - Integumentary Integumentary: Present: clear, warm, dry - Musculoskeletal Musculoskeletal: gait normal, strength equal bilaterally - Psychiatric Psychiatric: appropriate mood/affect, intact judgment & insight - Neurologic Neurologic: CNII-XII intact, moves all extremities Plan Activity: no restrictions Weight Bearing Status: Full Weight Bearing Diet: diabetic Follow up with: PRIMARY CARE, [Primary Care Provider] - 3-5 Days Prescriptions: Insulin NPH Hum/Reg Insulin Hm [HumuLIN 70-30 Vial] 35 unit SQ BID #30 ml
[2016-11-04] MEDS: ROCEPHIN/NS 1 GM/50 ML 1 GM/50 ML BAG IV SCH (10:21)
[2016-11-04 15:48] VITALS: BP 127/64
[2016-11-04] MEDS: HABITROL TD SCH (18:02)
== END 2016-11-04 18:30 | disposition home or self-care (01) | DRG 682 ==
LOC: ED 07:49 → CC1 09:19 → 3A 11-03 17:26
PROVIDERS: ADMIT Internal Medicine; ATTEND Hospitalist
DX: N17.0 Acute kidney failure with tubular necrosis (principal); E10.10 Type 1 diabetes mellitus with ketoacidosis without coma; G93.41 Metabolic encephalopathy; R65.10 Systemic inflammatory response syndrome (SIRS) of non-infectious origin without acute organ dysfunction; F10.10 Alcohol abuse, uncomplicated; I10 Essential (primary) hypertension; Z86.19 Personal history of other infectious and parasitic diseases; F17.210 Nicotine dependence, cigarettes, uncomplicated; Z84.89 Family history of other specified conditions; Z83.3 Family history of diabetes mellitus; E87.5 Hyperkalemia; D64.9 Anemia, unspecified; R63.4 Abnormal weight loss; Z68.22 Body mass index [BMI] 22.0-22.9, adult; Z91.19 Patient's noncompliance with other medical treatment and regimen; Z71.89 Other specified counseling; E86.9 Volume depletion, unspecified; F19.10 Other psychoactive substance abuse, uncomplicated; E11.40 Type 2 diabetes mellitus with diabetic neuropathy, unspecified
CPT/HCPCS: 36415; 70450; 71010; 76770; 80048; 80074; 80307; 81001; 82010; 82043; 82140; 82805; 82962; 83036; 83690; 83735; 84100; 85007; 85025; 85027; 87040; 87086; 93005; 93010; 99406; J0696; J1644; J1815; J1885; J2060; J2270; J2405; J7030; J7042